=== PATIENT | female | born 1960 | race Caucasian/White ===

== ENCOUNTER → 2017-02-19 | Outpatient (CLI) | payer MEDICAID ==
--- NOTE | 2017-02-19 13:29 | RADIOLOGY REPORT (SQ) ---
EXAM DESCRIPTION: CT CHEST WITHOUT COMPLETED DATE/TIME: 02/19/2017 12:40 pm REASON FOR STUDY: PULMONARY NODULE (R91.1) R91.1 SOLITARY PULMONARY NODULE COMPARISON: 04/30/2015 TECHNIQUE: CT scan performed of the chest without intravenous contrast. Images reviewed with lung, soft tissue and bone windows. Reconstructed coronal and sagittal MPR images reviewed. All images st ored on PACS. All CT scanners at this facility use dose modulation, iterative reconstruction, and/or weight based d osing when appropriate to reduce radiation dose to as low as reasonably achievable (ALARA). [facility]: Dose Right [facility]: CareDose [facility]: Dose Right [facility]: Teradose 4D [facility]: Smart [place] RADIATION DOSE: Up-to-date CT equipment and radiation dose reduction techniques were employed. CTDIv ol: 4.3 mGy. DLP: 177 mGy-cm. mGy. LIMITATIONS: No technical limitations. FINDINGS: LUNGS AND PLEURA: Centrilobular emphysematous changes are present. There are no infiltrat es or effusions. There is no pulmonary mass. HILAR AND MEDIASTINAL STRUCTURES: No identified masses or abnormal nodes. No obvious aneurysm. HEART AND VASCULAR STRUCTURES: No aneurysm. There may be a minimal pericardial effusion, but smaller than on the earlier study. UPPER ABDOMEN: No significant findings. Limited exam. THYROID AND OTHER SOFT TISSUES: Thyroid not well seen. No adenopathy or masses BONES: No significant finding. HARDWARE: None in the chest. OTHER: No other significant findings. IMPRESSION: 1. Pulmonary emphysema. 2. Minimal pericardial effusion, smaller than on earlier study. TECHNICAL DOCUMENTATION: JOB ID: [id number] Quality ID # [id number]: Final reports with documentation of one or more dose reduction techniques (e.g., Au tomated exposure control, adjustment of the mA and/or kV according to patient size, use of iterative reconstruction technique) 2010 [employer]- All Rights Reserved
== END ==
LOC: RAD 12:19
PROVIDERS: ATTEND Internal Medicine Critical Care Medicine
DX: R91.1 Solitary pulmonary nodule (principal)
CPT/HCPCS: 71250

== ENCOUNTER → 2018-08-31 | Outpatient (CLI) | payer MEDICAID ==
--- NOTE | 2018-08-31 21:01 | XCELERA REPORT ---
[address] [address] Transthoracic Echocardiogram Report Name: NACHO PARK Age: 58 yrs Gender: Female : 1960 Patient Status: Outpatient Patient Location: [facility] Study Date: 08/31/2018 09:28 AM Height: 67 in Weight: 154 lb BSA: 1.8 m2 Procedure: A complete two-dimensional transthoracic echocardiogram was performed (2D, M-mode, spectral and color flow Doppler). The study was technically adequate with some images being suboptimal in quality. Reason For Study: CP, DYSPNEA Ordering Physician: ANJALI GODFREY Performed By: Chris Keith Interpretation Summary The left ventricular ejection fraction is normal. There is borderline concentric left ventricular hypertrophy. The left ventricle is grossly normal size. Doppler measurements suggest pseudonormalized left ventricular relaxation, which is associated with grade II/IV or mild to moderate diastolic dysfunction Wall motion cannot be accurately commented on, but no definite regional wall motion abnormalities noted. The right ventricular systolic function is normal. Borderline right ventricular enlargement. The left atrium is mildly dilated. The right atrium is normal in size There is a trace to mild amount of mitral regurgitation There is no mitral valve stenosis. No aortic regurgitation is present. There is no aortic valve stenosis There is a mild amount of tricuspid regurgitation There is moderate pulmonary hypertension by echo Best estimated right ventricular systolic pressure is elevated at 50-60mmHg. The inferior vena cava appeared normal and decreased > 50% with respiration (RAP 5-10 mmHg) Minimal pericardial effusion. MMode/2D Measurements & Calculations RVDd: 2.8 cm LVIDd: 4.8 cm FS: 33.6 % Ao root diam: 3.0 cm IVSd: 0.79 cm LVIDs: 3.2 cm EDV(Teich): Ao root area: 107.3 ml LVPWd: 0.89 cm 7.1 cm2 ESV(Teich): 40.5 mlLA dimension: 3.5 cm EF(Teich): 62.3 % LVLd ap4: 7.2 cm SV(MOD-sp4): EDV(MOD-sp4): 47.0 ml 76.0 ml LVLs ap4: 6.2 cm ESV(MOD-sp4): 29.0 ml EF(MOD-sp4): 61.8 % Doppler Measurements & Calculations MV E max jerzy: MV P1/2t max jerzy: Ao V2 max: LV V1 max P.6 cm/sec 106.2 cm/sec 120.2 cm/sec 2.5 mmHg MV A max jerzy: MV P1/2t: 50.4 msec Ao max P.8 mmHgLV V1 max: 117.5 cm/sec 79.4 cm/sec MVA(P1/2t): 4.4 cm2 MV E/A: 0.92 MV dec slope: 617.6 cm/sec2 MV dec time: 0.18 sec PA V2 max: TR max jerzy: MV P1/2t-pr_phl: 78.8 cm/sec 337.8 cm/sec 50.4 msec PA max P.5 mmHg TR max P.7 mmHg Left Ventricle The left ventricle is grossly normal size. There is borderline concentric left ventricular hypertrophy. The left ventricular ejection fraction is normal. Doppler measurements suggest pseudonormalized left ventricular relaxation, which is associated with grade II/IV or mild to moderate diastolic dysfunction. Wall motion cannot be accurately commented on, but no definite regional wall motion abnormalities noted. Right Ventricle Borderline right ventricular enlargement. There is normal right ventricular wall thickness. The right ventricular systolic function is normal. Atria The right atrium is normal in size. The left atrium is mildly dilated. Interarterial septum not well visualized and not well dopplered. Cannot comment on ASD/PFO presence. Mitral Valve The mitral valve leaflets are sclerotic, but show no functional abnormalities. There is no mitral valve stenosis. There is a trace to mild amount of mitral regurgitation. Aortic Valve The aortic valve is grossly normal. There is no aortic valve stenosis. No aortic regurgitation is present. Tricuspid Valve The tricuspid valve is not well visualized, but is grossly normal. There is no tricuspid stenosis. There is a mild amount of tricuspid regurgitation. There is moderate pulmonary hypertension by echo. Best estimated right ventricular systolic pressure is elevated at 50-60mmHg. Pulmonic Valve The pulmonic valve is not well visualized. Great Vessels The aortic root is not well visualized but is probably normal size. The inferior vena cava appeared normal and decreased > 50% with respiration (RAP 5-10 mmHg). Effusions Minimal pericardial effusion. : ANJALI GODFREY > Ana Gould
== END ==
LOC: RAD 08:18
PROVIDERS: ATTEND Internal Medicine Cardiovascular Disease
DX: R07.9 Chest pain, unspecified (principal); R06.00 Dyspnea, unspecified
CPT/HCPCS: 93306

== ENCOUNTER → 2018-09-01 | Outpatient (CLI) | payer MEDICAID ==
[~2018-09-01] MED LIST: REGADENOSON INJ 0.4 MG/5 ML DISP.SYRIN IV ONE
--- NOTE | 2018-09-04 14:25 | DRAGON STRESS TEST REPORT ---
Intravenous Lexiscan Cardiolite stress test using single photon emmision computerized tomography. Date of procedure: 09/01/2018.Ordering Provider: Dr. Oleksandr Martines. Patient's status: Out Patient Indication: Chest pain, and dyspnea. Coronary risk factors: Age, hypertension, dyslipidemia, and tobacco abuse disorder. Resting: EKG: Sinus Rhythm. Within Normal Limits. Stress EKG: No changes of ischemia. The patient had no chest pain or discomfort, and there were no arrhythmias seen. Reason for termination: Protocol. Conclusions: Normal EKG and hemodynamic response to IV Lexiscan. Nuclear data: At rest the patient was given 10.96 millicuries of technetium 99m sestamibi injected intravenously. As per protocol rest non gated SPECT images were obtained. Subsequently the patient was given intravenous Lexiscan at a dose of 0.4 mg in 5 mL intravenously, followed by flush with normal saline. Subsequently the stress dose of 32.3 millicuries of technetium 99m sestamibi was injected intravenously. As per protocol stress gated images were obtained. Nuclear interpretation: Review of images showed that all segments of the myocardium had normal perfusion at rest, and normal perfusion post stress with IV Lexiscan. All segments of the myocardium had normal motion, contraction, and thickening by gated study. T. I D. ratio was upper normal at 1.20. Visually the T IT ratio looks to be within normal limits. There is no transient ischemic dilatation of the left ventricle. Computer read rest, and stress left ventricular ejection fraction were 68 %, and 61 %, respectively. Conclusion: 1. There is no scintigraphic evidence of Lexiscan induced myocardial ischemia. 2. There is no scintigraphic evidence of myocardial infarction/scar. Recommendations: Aggressive risk factor modification, and treating the underlying co- morbidities. [facility]
== END ==
LOC: RAD 07:55
PROVIDERS: ATTEND Internal Medicine Cardiovascular Disease
DX: R07.9 Chest pain, unspecified (principal); R06.00 Dyspnea, unspecified; I10 Essential (primary) hypertension; E78.5 Hyperlipidemia, unspecified; Z72.0 Tobacco use
CPT/HCPCS: 93017; 78452; A9500; J2785; Q9969

== ENCOUNTER 2019-02-24 12:15 | Emergency (ER) | payer MEDICAID ==
--- NOTE | 2019-02-24 13:10 | RADIOLOGY REPORT (SQ) ---
EXAM DESCRIPTION: CHEST 2 VIEWS COMPLETED DATE/TIME: 02/24/2019 1:02 pm REASON FOR STUDY: cough, SOB COMPARISON: None. EXAM PARAMETERS: NUMBER OF VIEWS: two views TECHNIQUE: Digital Frontal and Lateral radiographic views of the chest acquired. RADIATION DOSE: NA LIMITATIONS: none FINDINGS: LUNGS AND PLEURA: Blunting of both costophrenic angles consistent with pleural thickening or small effusions. Interstitial markings are mildly prominent no focal consolidation. Lung rogers are hyperexpanded consistent with COPD. MEDIASTINUM AND HILAR STRUCTURES: No masses or contour abnormalities. HEART AND VASCULAR STRUCTURES: Heart size is normal there is slight central vascular prominence. BONES: No acute findings. HARDWARE: None in the chest. OTHER: No other significant finding. IMPRESSION: Suspect mild vascular congestion in the setting of COPD. TECHNICAL DOCUMENTATION: JOB ID: [id number] [employer]- All Rights Reserved Reading location - IP/workstation name: [email or web address]
[2019-02-24 13:15] LABS: ABSOLUTE LYMPHOCYTES (AUTO) 2.4 10^3/uL (0.5-4.7); ABSOLUTE MONOCYTES (AUTO) 0.3 10^3/uL (0.1-1.4); ABSOLUTE NEUT (AUTO) 4.3 10^3/uL (1.7-8.2); BASOPHILS % (AUTO) 0.1 % (0-2); EOSINOPHILS % (AUTO) 0.6 % (0-6); HEMATOCRIT 43.7 % (36.0-47.0); HEMOGLOBIN 14.9 g/dL (12.0-15.5); LYMPHOCYTES % (AUTO) 34.4 % (13-45); MEAN CORPUSCULAR HEMOGLOBIN 33.8 pg (27.0-33.4); MEAN CORPUSCULAR HGB CONC 34.2 g/dL (32.0-36.0); MEAN CORPUSCULAR VOLUME 99 fl (80-97); MONOCYTES % (AUTO) 3.6 % (3-13); PLATELET COUNT 304 10^3/uL (150-450); RED BLOOD COUNT 4.42 10^6/uL (3.72-5.28); RED CELL DISTRIBUTION WIDTH 15.1 % (11.5-14.0); SEGMENTED NEUTROPHILS % (AUTO) 61.3 % (42-78); TOTAL CELLS COUNTED % (AUTO) 100 %
[2019-02-24 13:35] LABS: ALBUMIN 4.4 g/dL (3.5-5.0); ALKALINE PHOSPHATASE 85 U/L (38-126); ANION GAP 11 (5-19); ASPARTATE AMINO TRANSFERASE 19 U/L (14-36); BILIRUBIN,DIRECT 0.3 mg/dL (0.0-0.4); BILIRUBIN,TOTAL 0.7 mg/dL (0.2-1.3); BLOOD UREA NITROGEN 12 mg/dL (7-20); CALCIUM 9.5 mg/dL (8.4-10.2); CARBON DIOXIDE 25 mmol/L (22-30); CHLORIDE 105 mmol/L (98-107); CREATINE KINASE 82 U/L (30-135); GLUCOSE 143 mg/dL (75-110); POTASSIUM 3.3 mmol/L (3.6-5.0); TOTAL PROTEIN 7.1 g/dL (6.3-8.2)
[2019-02-24 13:46] LABS: NT PRO BNP 621 pg/mL (5-900); TROPONIN I < 0.012 ng/mL
[2019-02-24] MEDS ORDERED: DIPHENHYDRAMINE HCL 50 MG/ML VIAL IV ONE (13:49)
--- NOTE | 2019-02-24 15:23 | ER Document Report ---
ED General - General Chief Complaint: Allergic Reaction Stated Complaint: POSSIBLE ALLERGIC REACTION Time Seen by Provider: 02/24/19 12:25 Primary Care Provider: JAYDE GANDHI FNP-C [Primary Care Provider] - Follow up as needed TRAVEL OUTSIDE OF THE [place] IN LAST 30 DAYS: No - HPI Notes: 59-year-old female with history of COPD to the emergency department via EMS with complaints of possible allergic reaction that occurred just prior to arrival. She states that she has been experiencing cough, shortness of breath for the past 2 weeks. She states that she does see pulmonology and she is supposed to get pulmonary function tests but did not have them. She states that for the past week she has been on her nebulizer machine several times a day upwards to 10 treatments and is also been using her rescue inhaler. She states that that has not been helping her at home. She states that she does not use home oxygen. She states that when she was last at her supervisor home economics office her O2 level was 94% on room air. She states that despite being told by her supervisor home economics that she should stop quitting she still continues to smoke approximately 10 cigarettes a day. She states that she has been coughing up clear fluid but denies any fevers, chills. She states that this morning she went to go get a pain pill because all of her coughing has been hurting her chest and she thinks she accidentally may have taken a sulfa antibiotic. She states that she is allergic to sulfa antibiotics. She states that soon after taking her medicine she broke out in a hot red rash to her upper extremity chest back trunk and legs. She states that she started to feel more short of breath so she gave herself 2 nebulizer treatments and took a 25 mg tablet of Benadryl as well as a small amount of liquid Benadryl for her dog. She states that when she did not feel better she called medics. Medics gave patient a injection of epinephrine as well as 125 of Solu-Medrol and 50 mg of Zantac. When medics picked patient up she had a O2 sat of 84% on room air. She states that since getting the medicine with medics she is starting to feel better. She states that she does not feel like her tongue swelling or her throat was closing. She does not have an EpiPen herself at home. She denies any other complaints. - Related Data Allergies/Adverse Reactions: No Known Allergies Allergy (Verified 04/13/16 12:36) Past Medical History - General Information source: Patient, Emergency Med Personnel - Social History Smoking Status: Current Every Day Smoker Frequency of alcohol use: None Drug Abuse: None Family History: Reviewed & Not Pertinent Patient has suicidal ideation: No Patient has homicidal ideation: No - Past Medical History Cardiac Medical History: Denies: Hx Heart Attack, Hx Hypertension Pulmonary Medical History: Reports: Hx Asthma, Hx COPD Neurological Medical History: Denies: Hx Cerebrovascular Accident, Hx Seizures Renal/ Medical History: Denies: Hx Peritoneal Dialysis GI Medical History: Reports: Hx Gastroesophageal Reflux Disease, Hx Hiatal He rnia, Hx Ulcer. Denies: Hx Hepatitis Psychiatric Medical History: Reports: Hx Bipolar Disorder Infectious Medical History: Denies: Hx Hepatitis Past Surgical History: Denies: Hx Hysterectomy, Hx Mastectomy, Hx Open Heart Dharmesh katie, Hx Pacemaker - Immunizations Hx Diphtheria, Pertussis, Tetanus Vaccination: No Review of Systems - Review of Systems Constitutional: denies: Chills, Fever EENT: No symptoms reported Cardiovascular: See HPI, Chest pain - Tussive chest pain and chest pain that increases with big deep breath. denies: Syncope, Dizziness, Lightheaded Respiratory: Cough, Short of breath Gastrointestinal: denies: Abdominal pain, Diarrhea, Nausea, Vomiting Genitourinary: No symptoms reported Musculoskeletal: No symptoms reported Skin: See HPI, Rash Hematologic/Lymphatic: No symptoms reported Neurological/Psychological: No symptoms reported -: Yes All other systems reviewed and negative Physical Exam - Vital signs Vitals: Resp Pulse Ox 16 98 02/24/19 12:38 02/24/19 12:38 Interpretation: Normal - General General appearance: Alert, Other - Appears chronically ill. Noted fragrance of cigarettes on patient. In distress: None - HEENT Head: Normocephalic, Atraumatic Eyes: Normal Pupils: PERRL Ears: Normal External canal: Normal Tympanic membrane: Normal Sinus: Normal Nasal: Normal Mouth/Lips: Normal. No: Angioedema Mucous membranes: Normal Pharynx: Normal. No: Peritonsillar abscess, Post nasal drainage, Retropharyngeal abscess, Tonsillar hypertrophy, Uvular edema, Potential airway comprom. - No drooling, no Rey's angina. Airway is grossly patent Neck: Normal - Respiratory Respiratory status: Tachypnea - Patient is slightly tachypneic. She has a hacking dry cough she has a raspy voice consistent with smoker. Chest status: Nontender Breath sounds: Normal. No: Rales, Rhonchi, Stridor, Wheezing Chest palpation: Normal - Cardiovascular Rhythm: Regular Heart sounds: Normal auscultation Murmur: No Notes: No pitting edema to bilateral lower extremities - Abdominal Inspection: Normal Distension: No distension Bowel sounds: Normal Tenderness: Nontender Organomegaly: No organomegaly - Back Back: Normal, Nontender - Neurological Neuro grossly intact: Yes Cognition: Normal Orientation: AAOx4 Thierry Coma Scale Eye Opening: Spontaneous [place] Coma Scale Verbal: Oriented Thierry Coma Scale Motor: Obeys Commands Thierry Coma Scale Total: 15 Speech: Normal Motor strength normal: LUE, RUE, LLE, RLE Sensory: Normal - Psychological Associated symptoms: Normal affect, Normal mood - Skin Skin Temperature: Warm Skin Moisture: Dry Skin Color: Normal Course - Re-evaluation Re-evalutation: 02/24/19 15:24 Rounded on patient and she is doing better. Since she was given epinephrine we will continue to monitor the patient. Will await lab work as well as imaging studies. 02/24/19 17:23 Rounded on patient and she continues to do well. She no longer requires oxygen as she did when she first came in. She has been able to ambulate about the ER and her oxygen level has been maintained. Her allergic reaction has gotten better. Plan to send her home on a Medrol Dosepak. We will also write for epinephrine. Have urged her to throw away the sulfa drug that she thinks she accidentally took this morning. Have also educated her heavily on smoking cessation. Have asked her to follow-up with her supervisor home economics and primary care first thing next week. Urged her to return she has any worsening symptoms such as progressively worsening shortness of breath, worsening allergic reaction, chest pain or any other complaints. Patient agrees with the plan. - Vital Signs Vital signs: Temp Pulse Resp BP Pulse Ox 22 H 144/81 H 96 02/24/19 16:01 02/24/19 16:00 02/24/19 16:01 Selected Entries 02/24/19 17:17 Heart Rate ( 74 Monitors) Respiratory 16 Rate Blood Pressure 164/92 H Blood Pressure 116 Mean O2 Sat by Pulse 96 Oximetry - Laboratory Result Diagrams: 02/24/19 12:58 02/24/19 12:28 Laboratory results interpreted by me: 02/24/19 02/24/19 12:28 12:58 MCV 99 H MCH 33.8 H RDW 15.1 H Potassium 3.3 L Glucose 143 H - Diagnostic Test Radiology reviewed: Image reviewed, Reports reviewed - EKG Interpretation by Me EKG shows normal: Sinus rhythm Rate: Normal Rhythm: NSR When compared to previous EKG there are: Previous EKG unavailable Additional EKG results interpreted by me: 02/24/19 15:26 No STEMI. Nonspecific T wave changes in aVL and V2. No prior for comparison. Discharge - Discharge Clinical Impression: Allergic reaction Qualifiers: Encounter type: initial encounter Qualified Code(s): T78.40XA - Allergy, unspecified, initial encounter COPD (chronic obstructive pulmonary disease) Qualifiers: COPD type: unspecified COPD Qualified Code(s): J44.9 - Chronic obstructive pulmonary disease, unspecified Condition: Stable Disposition: HOME, SELF-CARE Instructions: Acute Allergic Reaction ([facility]), Chronic Obstructive Lung Disease ([facility]) Additional Instructions: FOLLOW UP WITH YOUR PRIMARY CARE AND HEEL TURNER AT THE BEGINNING OF NEXT WEEK WITHOUT FAIL. COMPLETE STEROIDS. RETURN IF ANY WORSENING SYMPTOMS. Prescriptions: Epinephrine [Epipen 2-Geovany] 0.3 mg IM ASDIR PRN #1 packet PRN Reason: Methylprednisolone [Medrol Dosepack (4 mg/Tab) 21 Tab/Dosepak] 4 mg PO ASDIR PRN #21 tab.ds.pk PRN Reason: Referrals: JAYDE GANDHI FNP-C [Primary Care Provider] - Follow up in 3-5 days
[2019-02-24 17:23] VITALS: BP 164/92
--- NOTE | 2019-02-25 19:06 | EKG REPORT ---
SEVERITY:- ABNORMAL ECG - SINUS RHYTHM BIATRIAL ABNORMALITIES : Confirmed by: Lilia Altman MD 25-Feb-2019 19:05:13
== END 2019-02-24 18:12 | disposition home or self-care (01) ==
LOC: ER 12:15
DX: T78.40XA Allergy, unspecified, initial encounter (principal); J44.9 Chronic obstructive pulmonary disease, unspecified; R05 Cough; R06.82 Tachypnea, not elsewhere classified; Z79.899 Other long term (current) drug therapy; F17.200 Nicotine dependence, unspecified, uncomplicated
CPT/HCPCS: 93005; 99284; 96374; 36415; 82553; 82550; 85025; 80053; 84484; 83880; 71046; 93010; J1200

== ENCOUNTER → 2019-04-06 | Outpatient (CLI) | payer MEDICAID ==
--- NOTE | 2019-04-06 16:28 | RADIOLOGY REPORT (SQ) ---
EXAM DESCRIPTION: CT CHEST WITHOUT COMPLETED DATE/TIME: 04/06/2019 1:19 pm REASON FOR STUDY: Z80.1 FAMILY HISTORY OF MALIG NEOPLASM OF TRACHEA, BRONC AND LUNG Z80.1 FAMILY HI STORY OF MALIG NEOPLASM OF TRACHEA, BRONC AND COMPARISON: 02/19/2017 TECHNIQUE: CT scan performed of the chest without intravenous contrast. Images reviewed with lung, soft tissue and bone windows. Reconstructed coronal and sagittal MPR images reviewed. All images st ored on PACS. All CT scanners at this facility use dose modulation, iterative reconstruction, and/or weight based d osing when appropriate to reduce radiation dose to as low as reasonably achievable (ALARA). [facility]: Dose Right [facility]: CareDose [facility]: Dose Right [facility]: Teradose 4D [facility]: [employer] RADIATION DOSE: CT Rad equipment meets quality standard of care and radiation dose reduction techniq ues were employed. CTDIvol: 5.6 mGy. DLP: 228 mGy-cm. mGy. LIMITATIONS: No technical limitations. FINDINGS: LUNGS AND PLEURA: Centrilobular emphysema in the upper lobes. No infiltrate or effusion o r mass. HILAR AND MEDIASTINAL STRUCTURES: Small nonspecific mediastinal nodes. No mediastinal or hilar mass. HEART AND VASCULAR STRUCTURES: No aneurysm. Stable small pericardial effusion. UPPER ABDOMEN: No significant findings. Limited exam. THYROID AND OTHER SOFT TISSUES: No masses. No adenopathy. BONES: No significant finding. HARDWARE: None in the chest. OTHER: No other significant findings. IMPRESSION: Centrilobular emphysema. Stable small pericardial effusion. No acute findings in the t horax. TECHNICAL DOCUMENTATION: JOB ID: [id number] Quality ID # [id number]: Final reports with documentation of one or more dose reduction techniques (e.g., Au tomated exposure control, adjustment of the mA and/or kV according to patient size, use of iterative reconstruction technique) 2010 [employer]- All Rights Reserved Reading location - IP/workstation name: [email or web address]
== END ==
LOC: RAD 12:53
PROVIDERS: ATTEND Internal Medicine Critical Care Medicine
DX: J43.2 Centrilobular emphysema (principal); R91.1 Solitary pulmonary nodule; R91.8 Other nonspecific abnormal finding of lung field; Z80.1 Family history of malignant neoplasm of trachea, bronchus and lung
CPT/HCPCS: 71250

== ENCOUNTER 2019-10-15 17:19 | Inpatient (IN) | payer MEDICAID ==
[2019-10-15 17:48] LABS: ABSOLUTE BASOPHILS # (AUTO) 0.1 10^3/uL (0.0-0.2); ABSOLUTE EOSINOPHILS # (AUTO) 0.1 10^3/uL (0.0-0.6); ABSOLUTE MONOCYTES (AUTO) 0.9 10^3/uL (0.1-1.4); ABSOLUTE NEUT (AUTO) 15.3 10^3/uL (1.7-8.2); BASOPHILS % (AUTO) 0.3 % (0-2); EOSINOPHILS % (AUTO) 0.4 % (0-6); HEMOGLOBIN 12.4 g/dL (12.0-15.5); LYMPHOCYTES % (AUTO) 10.7 % (13-45); MEAN CORPUSCULAR HEMOGLOBIN 34.5 pg (27.0-33.4); MEAN CORPUSCULAR HGB CONC 35.4 g/dL (32.0-36.0); MEAN CORPUSCULAR VOLUME 98 fl (80-97); MONOCYTES % (AUTO) 5.1 % (3-13); PLATELET COUNT 323 10^3/uL (150-450); RED BLOOD COUNT 3.58 10^6/uL (3.72-5.28); RED CELL DISTRIBUTION WIDTH 14.6 % (11.5-14.0); SEGMENTED NEUTROPHILS % (AUTO) 83.5 % (42-78); TOTAL CELLS COUNTED % (AUTO) 100 %; WHITE BLOOD COUNT 18.3 10^3/uL (4.0-10.5)
[2019-10-15 17:54] LABS: ALBUMIN 3.8 g/dL (3.5-5.0); ALKALINE PHOSPHATASE 107 U/L (38-126); ANION GAP 19 (5-19); ASPARTATE AMINO TRANSFERASE 50 U/L (14-36); BILIRUBIN,DIRECT 0.4 mg/dL (0.0-0.4); BILIRUBIN,TOTAL 0.8 mg/dL (0.2-1.3); BLOOD UREA NITROGEN 113 mg/dL (7-20); CARBON DIOXIDE 20 mmol/L (22-30); CHLORIDE 94 mmol/L (98-107); CREATINE KINASE 429 U/L (30-135); GLUCOSE 117 mg/dL (75-110); POTASSIUM 3.4 mmol/L (3.6-5.0); TOTAL PROTEIN 7.8 g/dL (6.3-8.2)
[2019-10-15 18:05] LABS: CREATINE KINASE MB 2.76 ng/mL (<4.55); TROPONIN I 0.025 ng/mL
--- NOTE | 2019-10-15 18:08 | RADIOLOGY REPORT (SQ) ---
EXAM DESCRIPTION: CHEST SINGLE VIEW IMAGES COMPLETED DATE/TIME: 10/15/2019 5:58 pm REASON FOR STUDY: sob COMPARISON: 02/24/2019 EXAM PARAMETERS: NUMBER OF VIEWS: One view. TECHNIQUE: Single frontal radiographic view of the chest acquired. RADIATION DOSE: NA LIMITATIONS: None. FINDINGS: LUNGS AND PLEURA: Dense opacity and pleural effusion on the right. Parenchymal opacity on the left. MEDIASTINUM AND HILAR STRUCTURES: No masses. Contour normal. HEART AND VASCULAR STRUCTURES: Heart normal in size. Normal vasculature. BONES: No acute findings. HARDWARE: None in the chest. OTHER: No other significant finding. IMPRESSION: Bilateral pneumonia and right pleural effusion. TECHNICAL DOCUMENTATION: JOB ID: [id number] 2010 [employer]- All Rights Reserved Reading location - IP/workstation name: [email or web address]
[2019-10-15] MEDS ORDERED: NORMAL SALINE 1000 ML 1,000 ML IV PRN (19:07)
[2019-10-15] MEDS ORDERED: CEFTRIAXONE 1 GM/D5W RTU 1 GM/50 ML RTUPB IV ONE (19:47)
[2019-10-15] MEDS ORDERED: LEVOFLOXACIN 750 MG/D5W RTU 150 ML IV ONE (19:49)
[2019-10-15] MEDS ORDERED: AZITHROMYCIN INJ 500 MG VIAL IV ONE (19:57)
--- NOTE | 2019-10-15 20:05 | ER Document Report ---
ED General - General Chief Complaint: General Weakness Stated Complaint: GENERAL WEAKNESS Time Seen by Provider: 10/15/19 19:47 Primary Care Provider: WALI CHAPA MD [Primary Care Provider] - Follow up as needed Mode of Arrival: Medic Information source: Patient, Emergency Med Personnel TRAVEL OUTSIDE OF THE [place] IN LAST 30 DAYS: No - HPI Onset: Other - 2-3 weeks ago Onset/Duration: Persistent Quality of pain: Achy Severity: Moderate Pain Level: 2 Associated symptoms: Productive cough, Shortness of breath Exacerbated by: Movement, Coughing, Deep breathing Relieved by: Denies Similar symptoms previously: Yes - pneumonia many years ago Recently seen / treated by doctor: No - Related Data Allergies/Adverse Reactions: No Known Allergies Allergy (Verified 04/13/16 12:36) Past Medical History - General Information source: Patient - Social History Smoking Status: Current Every Day Smoker Cigarette use (# per day): Yes Chew tobacco use (# tins/day): No Smoking Education Provided: Yes Drug Abuse: None Lives with: Family Family History: Reviewed & Not Pertinent Patient has suicidal ideation: No Patient has homicidal ideation: No - Past Medical History Cardiac Medical History: Denies: Hx Heart Attack, Hx Hypertension Pulmonary Medical History: Reports: Hx Asthma, Hx COPD Neurological Medical History: Denies: Hx Cerebrovascular Accident, Hx Seizures Renal/ Medical History: Denies: Hx Peritoneal Dialysis GI Medical History: Reports: Hx Gastroesophageal Reflux Disease, Hx Hiatal Hernia, Hx Ulcer. Denies: Hx Hepatitis Psychiatric Medical History: Reports: Hx Bipolar Disorder Infectious Medical History: Denies: Hx Hepatitis Past Surgical History: Denies: Hx Hysterectomy, Hx Mastectomy, Hx Open Heart Surgery, Hx Pacemaker - Immunizations Hx Diphtheria, Pertussis, Tetanus Vaccination: No Review of Systems - Review of Systems Constitutional: No symptoms reported, See HPI, Chills, Malaise, Weakness, Recent illness EENT: No symptoms reported Cardiovascular: No symptoms reported Respiratory: See HPI, Cough, Short of breath, Sputum Gastrointestinal: No symptoms reported Genitourinary: No symptoms reported Female Genitourinary: No symptoms reported Musculoskeletal: No symptoms reported Skin: No symptoms reported Hematologic/Lymphatic: No symptoms reported Neurological/Psychological: No symptoms reported Physical Exam - Vital signs Vitals: Resp BP Pulse Ox 18 71/50 L 98 10/15/19 17:18 10/15/19 17:18 10/15/19 17:18 Interpretation: Hypotensive, Hypoxic, Tachypneic - HEENT Head: Normocephalic Eyes: Normal Conjunctiva: Normal Cornea: Normal Extraocular movements intact: Yes Eyelashes: Normal Pupils: PERRL Sinus: Normal Nasal: Normal Mouth/Lips: Normal Mucous membranes: Dry Pharynx: Normal Neck: Normal - Respiratory Respiratory status: No respiratory distress Chest status: Tender - left UQ flank pain Breath sounds: Decreased air movement, Productive cough, Rales - Cardiovascular Rhythm: Tachycardia Heart sounds: Normal auscultation Murmur: No Friction rub: No Elsie's crunch: No - Abdominal Inspection: Normal Distension: No distension Bowel sounds: Normal Tenderness: Nontender Organomegaly: No organomegaly - Back Back: Normal - Extremities General upper extremity: Normal inspection General lower extremity: Normal inspection - Neurological Neuro grossly intact: Yes Cognition: Normal Orientation: AAOx4 Manley Coma Scale Eye Opening: Spontaneous Thierry Coma Scale Verbal: Oriented Thierry Coma Scale Motor: Obeys Commands Manley Coma Scale Total: 15 Speech: Normal Cranial nerves: Normal Cerebellar coordination: Normal Motor strength normal: LUE, RUE, LLE, RLE - Psychological Associated symptoms: Normal affect - Skin Skin Temperature: Warm Skin Moisture: Dry Course - Vital Signs Vital signs: Temp Pulse Resp BP Pulse Ox 98.5 F 25 H 102/43 L 97 10/15/19 22:08 10/15/19 22:30 10/15/19 22:30 10/15/19 22:30 - Laboratory Result Diagrams: 10/15/19 17:22 10/15/19 17:22 Laboratory results interpreted by me: 10/15/19 10/15/19 10/15/19 17:22 17:22 17:22 WBC 18.3 H RBC 3.58 L Hct 35.0 L MCV 98 H MCH 34.5 H RDW 14.6 H Lymph % (Auto) 10.7 L Absolute Neuts (auto) 15.3 H Seg Neutrophils % 83.5 H D-Dimer Sodium 133.1 L Potassium 3.4 L Chloride 94 L Carbon Dioxide 20 L BUN 113 H Creatinine 9.05 H Est GFR ( Amer) 5 L Est GFR (MDRD) Non-Af 4 L Glucose 117 H Lactic Acid Ferritin AST 50 H Creatine Kinase 429 H NT-Pro-B Natriuret Pep 794 H Urine Protein Urine Blood Ur Leukocyte Esterase 10/15/19 10/15/19 10/15/19 17:22 17:22 20:21 WBC RBC Hct MCV MCH RDW Lymph % (Auto) Absolute Neuts (auto) Seg Neutrophils % D-Dimer 7.70 H Sodium Potassium Chloride Carbon Dioxide BUN Creatinine Est GFR ( Amer) Est GFR (MDRD) Non-Af Glucose Lactic Acid 0.6 L Ferritin 710.00 H AST Creatine Kinase NT-Pro-B Natriuret Pep Urine Protein Urine Blood Ur Leukocyte Esterase 10/15/19 20:48 WBC RBC Hct MCV MCH RDW Lymph % (Auto) Absolute Neuts (auto) Seg Neutrophils % D-Dimer Sodium Potassium Chloride Carbon Dioxide BUN Creatinine Est GFR ( Amer) Est GFR (MDRD) Non-Af Glucose Lactic Acid Ferritin AST Creatine Kinase NT-Pro-B Natriuret Pep Urine Protein 30 H Urine Blood SMALL H Ur Leukocyte Esterase TRACE H - Diagnostic Test Radiology reviewed: Reports reviewed - EKG Interpretation by Me EKG shows normal: Sinus rhythm Rate: Normal Rhythm: NSR Critical Care Note - Critical Care Note Total time excluding time spent on procedures (mins): 90 Comments: spoke with Kerwin @ 1999 about kathryn pneumonia; I discussed this case with Discharge - Discharge Clinical Impression: Pneumonia Qualifiers: Pneumonia type: due to unspecified organism Laterality: bilateral Lung location: lower lobe of lung Qualified Code(s): J18.9 - Pneumonia, unspecified organism Sepsis Qualifiers: Sepsis type: sepsis due to unspecified organism Sepsis acute organ dysfunction status: unspecified Qualified Code(s): A41.9 - Sepsis, unspecified organism Condition: Serious Disposition: ADMITTED INPATIENT Unit Admitted: ICU Additional Instructions: transfer this pt to ICU 5th floor ; I spoke with him at 2240 and he advises for floor; earlier had spoken with Kerwin as well. Referrals: WALI CHAPA MD [Primary Care Provider] - Follow up as needed
[2019-10-15] MEDS: RINGERS SOLUTION,LACTATED 1,000 ML IV PRN ×2 (20:27→21:32)
[2019-10-15 21:03] LABS: A TYPE INFLUENZA AG NEGATIVE (NEGATIVE); B INFLUENZA AG NEGATIVE (NEGATIVE)
[2019-10-15 21:10] LABS: APPEARANCE,URINE CLOUDY; BILIRUBIN,URINE NEGATIVE (NEGATIVE); COLOR,URINE YELLOW; GLUCOSE, URINE NEGATIVE (NEGATIVE); KETONES,URINE NEGATIVE (NEGATIVE); LEUKOCYTE ESTERASE,URINE TRACE (NEGATIVE); NITRITE,URINE NEGATIVE (NEGATIVE); PROTEIN,URINE 30 mg/dL (NEGATIVE); URINE SPECIFIC GRAVITY 1.017; UROBILINOGEN,URINE NEGATIVE mg/dL (<2.0)
--- NOTE | 2019-10-15 22:28 | EKG REPORT ---
SEVERITY:- ABNORMAL ECG - SINUS RHYTHM LEFT ATRIAL ABNORMALITY : Confirmed by: Lilia Altman MD 15-Oct-2019 22:28:34
[2019-10-15] MEDS ORDERED: NORMAL SALINE 1000 ML 500 ML IV PRN (22:53)
[2019-10-15] MEDS ORDERED: ACETAMINOPHEN 650 MG SUPP.RECT PR PRN (23:01)
[2019-10-15] MEDS ORDERED: ACETAMINOPHEN 325 MG TABLET PO PRN (23:01)
[2019-10-15] MEDS ORDERED: ALBUTEROL SULFATE HFA (90 MCG/PUFF) 8 GM MDI IH PRN (23:08)
[2019-10-15] MEDS ORDERED: ENOXAPARIN SODIUM INJ 80 MG/0.8 ML DISP.SYRIN SUBCUT ONE (23:30)
[2019-10-15] MEDS ORDERED: MELATONIN 5 MG TABLET PO ONE (23:30)
--- NOTE | 2019-10-15 23:50 | PDOC H&P ---
History of Present Illness Admission Date/PCP: 10/15/19 23:06 WALI CHAPA MD Patient complains of: Shortness of breath History of Present Illness: NACHO PARK is a 59-year-old female with a history of COPD who still smokes 1/2 pack cigarettes daily. She states for the last week or more she has been feeling poorly. She is already on oxygen at home but states that she desaturates and gets very short of breath with minimal exertion. She denies fever or chills. She states that she has a cough but it is not terribly productive. She clearly is having increased work of breathing. Her chest x-ray shows bilateral pneumonia with the right lower lobe most significantly impacted. She has an elevated white blood cell count as well as lymphopenia, increased ferritin level, increased d-dimer and a severe acute kidney injury. She states that her intake has been extremely limited over the past 2 weeks. Her blood pressure was low but she responded to fluids. I discussed the case with the field logistics coordinator and we will admit the patient to the fifth floor for high index of suspicion of Covid-19 virus with underlying bilateral pneumonia, COPD and acute kidney injury. Past Medical History Cardiac Medical History: Denies: Myocardial Infarction, Hypertension Pulmonary Medical History: Reports: Asthma, Chronic Obstructive Pulmonary Disease (COPD) Neurological Medical History: Reports: Ischemic CVA Denies: Seizures Endocrine Medical History: Reports: Diabetes Mellitus Type 2 Renal/ Medical History: Reports: Chronic Kidney Disease GI Medical History: Reports: Gastroesophageal Reflux Disease, Hiatal Hernia Denies: Hepatitis Psychiatric Medical History: Reports: Bipolar Disorder Hematology: Denies: Anemia, Sickle Cell Disease Past Surgical History Past Surgical History: Denies: Amputation, Hysterectomy, Mastectomy, Pacemaker Social History Information Source: Patient Lives with: Family Smoking Status: Current Every Day Smoker Frequency of Alcohol Use: None Hx Recreational Drug Use: No Hx Prescription Drug Abuse: No - Advance Directive Resuscitation Status: Full Code Family History Family History: Reviewed & Not Pertinent Parental Family History Reviewed: Yes Children Family History Reviewed: Yes Sibling(s) Family History Reviewed.: Yes Medication/Allergy Home Medications: Fluticasone/Salmeterol [Advair 500-50 Diskus 28 Dose] 2 puff IH BID 06/05/13 Albuterol Sulfate [Proventil Sr 4 mg Tablet] 4 mg PO Q12H 03/19/16 Chlorpromazine HCl [Thorazine 25 Mg Tablet] 25 mg PO TID 03/19/16 Omeprazole 40 mg PO DAILY 03/19/16 Quetiapine Fumarate [Seroquel] 150 mg PO BID 03/19/16 Triazolam [Halcion] 0.25 mg PO DAILY 03/19/16 Epinephrine [Epipen 2-Geovany] 0.3 mg IM ASDIR PRN #1 packet 02/24/19 Methylprednisolone [Medrol Dosepack (4 mg/Tab) 21 Tab/Dosepak] 4 mg PO ASDIR PRN #21 tab.ds.pk 02/24/19 Allergies/Adverse Reactions: No Known Allergies Allergy (Verified 04/13/16 12:36) Review of Systems All systems: reviewed and no additional remarkable complaints except as stated Constitutional: PRESENT: weakness Cardiovascular: PRESENT: dyspnea on exertion Respiratory: PRESENT: cough, dyspnea Gastrointestinal: PRESENT: diarrhea Physical Exam Vital Signs: Temp Pulse Resp BP Pulse Ox 98.5 F 27 H 106/48 L 96 10/15/19 22:08 10/15/19 23:30 10/15/19 23:30 10/15/19 23:30 Intake & Output 10/14/19 10/15/19 10/16/19 06:59 06:59 06:59 Intake Total 3016 Balance 3016 Weight 70.307 kg General appearance: PRESENT: other - Well-developed 59-year-old female who looks older than her stated age. She exhibits clear increased work of breathing and is in moderate to severe distress. Head exam: PRESENT: atraumatic, normocephalic Eye exam: PRESENT: conjunctiva pink. ABSENT: scleral icterus Ear exam: PRESENT: normal external ear exam. ABSENT: bleeding, drainage Mouth exam: PRESENT: dry mucosa, tongue midline Respiratory exam: PRESENT: decreased breath sounds - Right base, prolonged e xpiratory phas, rales, symmetrical, tachypnea, wheezes - Bilateral expiratory Cardiovascular exam: PRESENT: RRR, +S1, +S2 GI/Abdominal exam: PRESENT: normal bowel sounds, soft. ABSENT: distended, guarding, tenderness Rectal exam: PRESENT: deferred Gentrourinary exam: PRESENT: indwelling catheter Extremities exam: ABSENT: pedal edema Musculoskeletal exam: PRESENT: normal inspection Neurological exam: PRESENT: alert, awake, oriented to person, oriented to place, oriented to situation, CN II-XII grossly intact Psychiatric exam: PRESENT: anxious. ABSENT: agitated Focused psych exam: ABSENT: delusional, paranoid, restlessness Skin exam: PRESENT: dry, normal color, warm. ABSENT: rash Results Laboratory Results: 10/15/19 17:22 10/15/19 17:22 10/15/19 10/15/19 10/15/19 17:22 17:22 17:22 WBC 18.3 H RBC 3.58 L Hgb 12.4 Hct 35.0 L MCV 98 H MCH 34.5 H MCHC 35.4 RDW 14.6 H Plt Count 323 Seg Neutrophils % 83.5 H Sodium 133.1 L Potassium 3.4 L Chloride 94 L Carbon Dioxide 20 L Anion Gap 19 BUN 113 H Creatinine 9.05 H Est GFR ( Amer) 5 L Glucose 117 H Lactic Acid Calcium 9.0 Ferritin 710.00 H Total Bilirubin 0.8 AST 50 H Alkaline Phosphatase 107 Total Protein 7.8 Albumin 3.8 Urine Color Urine Appearance Urine pH Ur Specific Whately Urine Protein Urine Glucose (UA) Urine Ketones Urine Blood Urine Nitrite Ur Leukocyte Esterase Urine WBC (Auto) Urine RBC (Auto) 10/15/19 10/15/19 20:21 20:48 WBC RBC Hgb Hct MCV MCH MCHC RDW Plt Count Seg Neutrophils % Sodium Potassium Chloride Carbon Dioxide Anion Gap BUN Creatinine Est GFR ( Amer) Glucose Lactic Acid 0.6 L Calcium Ferritin Total Bilirubin AST Alkaline Phosphatase Total Protein Albumin Urine Color YELLOW Urine Appearance CLOUDY Urine pH 5.0 Ur Specific Whately 1.017 Urine Protein 30 H Urine Glucose (UA) NEGATIVE Urine Ketones NEGATIVE Urine Blood SMALL H Urine Nitrite NEGATIVE Ur Leukocyte Esterase TRACE H Urine WBC (Auto) 4 Urine RBC (Auto) 1 10/15/19 10/15/19 17:22 17:22 Creatine Kinase 429 H CK-MB (CK-2) 2.76 Troponin I 0.025 NT-Pro-B Natriuret Pep 794 H Impressions: Chest X-Ray 10/15/19 17:26 IMPRESSION: Bilateral pneumonia and right pleural effusion. Assessment and Plan - Diagnosis (1) Pneumonia Qualifiers: Pneumonia type: due to unspecified organism Laterality: bilateral Lung location: lower lobe of lung Qualified Code(s): J18.9 - Pneumonia, unspecified organism Is this a current diagnosis for this admission?: Yes Plan: 10/15/2019 Patient with history of COPD who still smokes. She has bilateral pneumonia with respiratory difficulty. She exhibits increased work of breathing with hypoxia requiring more than her baseline oxygen. She will be on azithromycin and ceftriaxone. Based on her presentation, risk factors and work-up including imaging and laboratory studies there is a high index of suspicion for Covid-19 virus. (2) Sepsis Qualifiers: Sepsis type: sepsis due to unspecified organism Sepsis acute organ dysfunction status: with acute organ dysfunction Severe sepsis acute organ dysfunction type: acute renal failure Acute renal failure type: with acute tubular necrosis Severe sepsis shock status: without septic shock Qualified Code(s): A41.9 - Sepsis, unspecified organism; R65.20 - Severe sepsis without septic shock; N17.0 - Acute kidney failure with tubular necrosis Is this a current diagnosis for this admission?: Yes Plan: 10/15/2019 The patient had a low blood pressure that did respond to fluids. Her serum creatinine is markedly elevated. She is exhibiting hypoxemia over and above her baseline at home. She will be receiving fluids and antibiotics. Will monitor with serial laboratory studies. (3) Acute kidney injury Is this a current diagnosis for this admission?: Yes Plan: 10/15/2019 Likely due to a combination of sepsis and the patient's significant reduction in intake over the last 7 to 10 days. She is also having diarrhea. This will also generate fluid loss. Aggressive IV fluid with serial labs to monitor renal function. (4) Acute respiratory failure with hypoxia Is this a current diagnosis for this admission?: Yes Plan: 10/15/2019 Supplemental oxygen. Taper back to her baseline oxygen as tolerated. Treat the underlying pneumonia and COPD. (5) COPD exacerbation Is this a current diagnosis for this admission?: Yes Plan: 10/15/2019 Secondary to pneumonia. Possibly bacterial but also possibly viral. Antibiotics have been ordered. Other medications and use due to the high index of suspicion for Covid-19 virus. She will be admitted to the fifth floor for isolation. We will utilize inhalers as we are avoiding nebulizer treatments at this time. (6) Hypokalemia Is this a current diagnosis for this admission?: Yes Plan: 10/15/2019 Potassium supplementation. Serial labs to monitor potassium (7) Hyponatremia Is this a current diagnosis for this admission?: Yes Plan: 10/15/2019 Secondary to her pneumonia. Monitor serum sodium. (8) Bipolar disorder with moderate depression Is this a current diagnosis for this admission?: Yes Plan: 10/15/2019 The patient could not tell me her medication regimen. Await medication reconciliation from pharmacy. Need to monitor the QT interval while on azithromycin and Plaquenil. (9) Encounter for observation for suspected exposure to other biological agents ruled out Is this a current diagnosis for this admission?: Yes Plan: High suspicion for Covid-19 due to elevated ferritin, elevated d-dimer, pneumonia, underlying COPD, elevated white blood cell count with lymphopenia, elevated CPK greater than 2 times the upper limit normal and slightly elevated transaminases. - Time Time Spent with patient: 35 or more minutes Smoking Cessation Education: 3 to 10 minutes Medications reviewed and adjusted accordingly: Yes Anticipated discharge: Home - Inpatient Certification Based on my medical assessment, after consideration of the patient's comorbidities, presenting symptoms, or acuity I expect that the services needed warrant INPATIENT care.: Yes I certify that my determination is in accordance with my understanding of Medicare's requirements for reasonable and necessary INPATIENT services [42 CFR 412.3e].: Yes Medical Necessity: Need Close Monitoring Due to Risk of Patient Decompensation, Need For IV Fluids, Need for IV Antibiotics Post Hospital Care: 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
[2019-10-16] MEDS: POTASSI CL 20 MEQ/50 ML RIDER 20 MEQ/50 ML RTUPB IV SCH ×2 (00:48→02:34)
[2019-10-16] MEDS: ASCORBIC ACID 500 MG TABLET PO SCH ×4 (00:48→22:42)
[2019-10-16] MEDS: MAGNESIUM SULFATE/D5W 1 GM/100 ML RTUPB IV SCH ×2 (00:48→02:36)
[2019-10-16] MEDS ORDERED: NORMAL SALINE 1000 ML 500 ML IV ONE (00:57)
[2019-10-16] MEDS ORDERED: NICOTINE 14 MG/24 HR PATCH.TD24 TD PRN (01:55)
[2019-10-16] MEDS: NORMAL SALINE 1000 ML 1,000 ML IV PRN ×3 (03:00→14:26)
[2019-10-16] MEDS: PANTOPRAZOLE SODIUM 40 MG TABLET.DR PO SCH (06:19)
[2019-10-16 06:37] LABS: HEMOGLOBIN 11.7 g/dL (12.0-15.5); MEAN CORPUSCULAR HEMOGLOBIN 34.4 pg (27.0-33.4); MEAN CORPUSCULAR HGB CONC 35.4 g/dL (32.0-36.0); MEAN CORPUSCULAR VOLUME 97 fl (80-97); PLATELET COUNT 321 10^3/uL (150-450); RED BLOOD COUNT 3.39 10^6/uL (3.72-5.28); RED CELL DISTRIBUTION WIDTH 14.7 % (11.5-14.0); WHITE BLOOD COUNT 17.5 10^3/uL (4.0-10.5)
[2019-10-16 06:42] LABS: ANION GAP 14 (5-19); CALCIUM 8.1 mg/dL (8.4-10.2); CARBON DIOXIDE 15 mmol/L (22-30); CHLORIDE 108 mmol/L (98-107); GLUCOSE 108 mg/dL (75-110); PHOSPHORUS 4.8 mg/dL (2.5-4.5); POTASSIUM 3.6 mmol/L (3.6-5.0)
[2019-10-16 07:02] LABS: BLOOD UREA NITROGEN 66 mg/dL (7-20)
[2019-10-16 07:23] LABS: ABSOLUTE LYMPHOCYTES# (MANUAL) 0.5 10^3/uL (0.5-4.7); ABSOLUTE MONOCYTES # (MANUAL) 0.5 10^3/uL (0.1-1.4); BASOPHILS % (MANUAL) 0 % (0-2); EOSINOPHILS % (MANUAL) 0 % (0-6); LYMPHOCYTES % (MANUAL) 3 % (13-45); MONOCYTES % (MANUAL) 3 % (3-13); SEGMENTED NEUTROPHILS % (MAN) 94 % (42-78); TOTAL CELLS COUNTED 100
[2019-10-16 07:25] LABS: ANISOCYTOSIS SLIGHT; PLATELET COMMENT ADEQUATE; TOXIC VACUOLATION PRESENT
[2019-10-16] MEDS: ZINC SULFATE 220 MG CAPSULE PO SCH (09:38)
[2019-10-16] MEDS: HYDROXYCHLOROQUINE SULFATE 200 MG TABLET PO SCH ×2 (09:38→22:43)
[2019-10-16] MEDS ORDERED: THIAMINE HCL INJ 200 MG/2 ML VIAL IV SCH (10:00)
[2019-10-16] MEDS ORDERED: ENOXAPARIN SODIUM INJ 80 MG/0.8 ML DISP.SYRIN SUBCUT SCH (10:00)
[2019-10-16] MEDS ORDERED: FLUTICASONE/VILANTEROL 200-25 MCG/DOSE IH SCH (10:00)
[2019-10-16 10:33] LABS: APPEARANCE,URINE CLEAR; BILIRUBIN,URINE NEGATIVE (NEGATIVE); COLOR,URINE YELLOW; GLUCOSE, URINE NEGATIVE (NEGATIVE); KETONES,URINE NEGATIVE (NEGATIVE); LEUKOCYTE ESTERASE,URINE NEGATIVE (NEGATIVE); NITRITE,URINE NEGATIVE (NEGATIVE); PROTEIN,URINE NEGATIVE (NEGATIVE); UROBILINOGEN,URINE NEGATIVE mg/dL (<2.0)
[2019-10-16] MEDS: THIAMINE HCL 250 MG in NORMAL SALINE 50 ML IV SCH (11:58)
[2019-10-16] MEDS ORDERED: ACETAMINOPHEN 650 MG SUPP.RECT PR PRN (12:31)
--- NOTE | 2019-10-16 13:11 | Progress Note ---
Provider Note Provider Note: Procedure note: Patient is a 59-year-old female with a past medical history of COPD, CVA, DM 2, CKD, GERD, hiatal hernia, bipolar disease, and tobacco dependence with continuous use who was admitted 10/15/2019 with sepsis and acute respiratory failure secondary to pneumonia. Currently COVID PUI. Was called by nursing to provide assist with Hernandez catheter placement related to acute kidney injury with need for strict I&O's and critically ill patient and development of acute urinary retention. Nursing had attempted Hernandez catheter placement x5 and have been unsuccessful. On exam, patient was noted to have significant abdominal distention with easily palpable/firm/tender bladder and overflow urinary leakage. Limited pelvic exam revealed likely bladder prolapse as I did require digital reduction in order to visualize the urethra and place Hernandez catheter. A 14 Welsh Hernandez was placed utilizing standard sterile procedure. The patient did have slight discomfort but overall tolerated the procedure well and without complication. Balloon was inflated to 10 mL's utilizing the provided sterile saline. Patient was noted to have immediate clear urine output of 1000 mL's. Nursing was asked to clamp the Hernandez bag for 20 to 30 minutes prior to unclamping to prevent bladder spasm. Successful Hernandez placement was communicated to the patient primary provider. Urinalysis sent to the lab per his order. Total Procedure time: 25 min (r/t difficult anatomy and need for full PPE in Presumptive Positive COVID19 patient)
[2019-10-16] MEDS ORDERED: HYDROCODONE/ACETAMINOPHEN 5-325 MG TABLET PO PRN (16:25)
[2019-10-16] MEDS: LIDOCAINE 5% (700 MG) TRANSDERMAL ADH..PATCH TP SCH (17:09)
[2019-10-16] MEDS ORDERED: FUROSEMIDE INJ/PF 40 MG/4 ML SDV IV ONE (17:30)
--- NOTE | 2019-10-16 17:58 | PDOC PROGRESS REPORT ---
Subjective Progress Note for:: 10/16/19 Subjective:: Patient noted to have significant tach urinary retention this morning. Hernandez was placed with difficulty patient had about a liter output after placement of Hernandez. Patient is experiencing shortness of breath. Having some cough. Seems to be a little bit confused when assessed this morning with difficulty following instructions. Reason For Visit: PNEUMONIA,SEPSIS Physical Exam Vital Signs: Temp Pulse Resp BP Pulse Ox 99.5 F 93 32 H 135/57 H 98 10/16/19 16:00 10/16/19 16:00 10/16/19 16:00 10/16/19 16:00 10/16/19 16:21 Intake & Output 10/15/19 10/16/19 10/17/19 06:59 06:59 06:59 Intake Total 4477 2575.5 Output Total 1675 Balance 4477 900.5 Weight 73.5 kg General appearance: PRESENT: no acute distress, cooperative Neck exam: ABSENT: JVD Respiratory exam: PRESENT: crackles, decreased breath sounds - Right lung base, tachypnea, unlabored. ABSENT: retraction, wheezes Cardiovascular exam: PRESENT: RRR, +S1, +S2. ABSENT: tachycardia GI/Abdominal exam: PRESENT: soft. ABSENT: rebound, rigid, tenderness Extremities exam: ABSENT: pedal edema Neurological exam: PRESENT: alert, awake Results Laboratory Results: 10/16/19 05:49 10/16/19 05:49 10/15/19 10/15/19 10/15/19 17:22 17:22 17:22 WBC 18.3 H RBC 3.58 L Hgb 12.4 Hct 35.0 L MCV 98 H MCH 34.5 H MCHC 35.4 RDW 14.6 H Plt Count 323 Seg Neutrophils % 83.5 H Sodium 133.1 L Potassium 3.4 L Chloride 94 L Carbon Dioxide 20 L Anion Gap 19 BUN 113 H Creatinine 9.05 H Est GFR ( Amer) 5 L Glucose 117 H Lactic Acid Calcium 9.0 Phosphorus Magnesium Ferritin 710.00 H Total Bilirubin 0.8 AST 50 H Alkaline Phosphatase 107 Total Protein 7.8 Albumin 3.8 Urine Color Urine Appearance Urine pH Ur Specific [place] Urine Protein Urine Glucose (UA) Urine Ketones Urine Blood Urine Nitrite Ur Leukocyte Esterase Urine WBC (Auto) Urine RBC (Auto) 10/15/19 10/15/19 10/15/19 17:22 20:21 20:48 WBC RBC Hgb Hct MCV MCH MCHC RDW Plt Count Seg Neutrophils % Sodium Potassium Chloride Carbon Dioxide Anion Gap BUN Creatinine Est GFR ( Amer) Glucose Lactic Acid 0.6 L Calcium Phosphorus Magnesium 2.5 H Ferritin Total Bilirubin AST Alkaline Phosphatase Total Protein Albumin Urine Color YELLOW Urine Appearance CLOUDY Urine pH 5.0 Ur Specific [place] 1.017 Urine Protein 30 H Urine Glucose (UA) NEGATIVE Urine Ketones NEGATIVE Urine Blood SMALL H Urine Nitrite NEGATIVE Ur Leukocyte Esterase TRACE H Urine WBC (Auto) 4 Urine RBC (Auto) 1 10/16/19 10/16/19 10/16/19 05:49 05:49 10:00 WBC 17.5 H RBC 3.39 L Hgb 11.7 L Hct 33.0 L MCV 97 MCH 34.4 H MCHC 35.4 RDW 14.7 H Plt Count 321 Seg Neutrophils % Not Reportable Sodium 136.8 L Potassium 3.6 Chloride 108 H Carbon Dioxide 15 L Anion Gap 14 BUN 66 H D Creatinine 2.87 H Est GFR ( Amer) 20 L Glucose 108 Lactic Acid Calcium 8.1 L Phosphorus 4.8 H Magnesium 2.5 H Ferritin Total Bilirubin AST Alkaline Phosphatase Total Protein Albumin Urine Color YELLOW Urine Appearance CLEAR Urine pH 5.0 Ur Specific [place] 1.010 Urine Protein NEGATIVE Urine Glucose (UA) NEGATIVE Urine Ketones NEGATIVE Urine Blood SMALL H Urine Nitrite NEGATIVE Ur Leukocyte Esterase NEGATIVE Urine WBC (Auto) 1 Urine RBC (Auto) 1 10/15/19 10/15/19 17:22 17:22 Creatine Kinase 429 H CK-MB (CK-2) 2.76 Troponin I 0.025 NT-Pro-B Natriuret Pep 794 H Impressions: Chest X-Ray 10/15/19 17:26 IMPRESSION: Bilateral pneumonia and right pleural effusion. Assessment and Plan - Diagnosis (1) Pneumonia Qualifiers: Pneumonia type: due to unspecified organism Laterality: bilateral Lung location: lower lobe of lung Qualified Code(s): J18.9 - Pneumonia, unspecified organism Is this a current diagnosis for this admission?: Yes Plan: Bilateral opacities noted on chest x-ray suspicious for bilateral pneumonia. Patient has undergone testing for coronavirus. Currently on ceftriaxone and azithromycin. Follow-up blood cultures. (2) Acute respiratory failure with hypoxia Is this a current diagnosis for this admission?: Yes Plan: Likely secondary to pneumonia as well as moderate to large sized right pleural effusion. Having increased oxygen requirements currently on 4 to 5 L nasal cannula. Will give oxygen supplementation as needed. I have planned for thoracentesis to be done at bedside tomorrow morning. Will discuss with radiology to see if chest tube may be warranted given the size of the effusion. We will give a dose of Lasix to see if it helps. (3) Pleural effusion, right Is this a current diagnosis for this admission?: Yes Plan: Etiology is uncertain. Will require thoracentesis tomorrow and may be may require chest tube placement. Fluid analysis to follow with cytology. Patient does have a history of grade 2 diastolic dysfunction with moderate pulmonary hypertension on echo done last year. (4) Suspected 2019 novel coronavirus infection Is this a current diagnosis for this admission?: Yes Plan: Test result pending (5) COPD (chronic obstructive pulmonary disease) Qualifiers: COPD type: unspecified COPD Qualified Code(s): J44.9 - Chronic obstructive pulmonary disease, unspecified Is this a current diagnosis for this admission?: Yes Plan: Does not seem acutely exacerbated. Albuterol inhaler as needed, LABA/LAMA/ICS. (6) Acute kidney injury Is this a current diagnosis for this admission?: Yes Plan: Likely secondary to sepsis as well as post renal MARIA L. Patient notably put out about 1 L of urine after Hernandez was placed. Creatinine is a lot better today after receiving IV fluids. Continue to monitor BMP. (7) Sepsis Qualifiers: Sepsis type: sepsis due to unspecified organism Sepsis acute organ dys function status: with acute organ dysfunction Severe sepsis acute organ d ysfunction type: acute renal failure Acute renal failure type: with acute tubular necrosis Severe sepsis shock status: without septic shock Qualified Code(s): A41.9 - Sepsis, unspecified organism; R65.20 - Severe sepsis without septic shock; N17.0 - Acute kidney failure with tubular necrosis Is this a current diagnosis for this admission?: Yes Plan: Improved after fluid resuscitation. We will continue to watch closely.. (8) Tobacco dependence due to cigarettes Is this a current diagnosis for this admission?: Yes Plan: Nicotine patch - Time Time Spent with patient: 15-24 minutes
[2019-10-16] MEDS ORDERED: CEFTRIAXONE 1 GM/D5W RTU 1 GM/50 ML RTUPB IV SCH (18:00)
[2019-10-16] MEDS ORDERED: MELATONIN 3 MG TABLET PO SCH (22:00)
[2019-10-16] MEDS ORDERED: MELATONIN 5 MG TABLET PO SCH (22:00)
[2019-10-16] MEDS: AZITHROMYCIN 500 MG in DEXTROSE 5%-WATER 250 ML IV SCH (22:41)
[2019-10-16] MEDS: QUETIAPINE FUMARATE 100 MG TABLET PO SCH (22:42)
[2019-10-16] MEDS: PREGABALIN 75 MG CAPSULE PO SCH (22:42)
[2019-10-17] MEDS: PREGABALIN 75 MG CAPSULE PO SCH ×3 (05:31→21:23)
[2019-10-17] MEDS: PANTOPRAZOLE SODIUM 40 MG TABLET.DR PO SCH (05:32)
[2019-10-17 05:41] LABS: PROTHROMBIN TIME 14.2 SEC (11.4-15.4)
[2019-10-17 05:42] LABS: PARTIAL THROMBOPLASTIN TIME 36.3 SEC (23.5-35.8)
[2019-10-17 05:46] LABS: ALKALINE PHOSPHATASE 104 U/L (38-126); ANION GAP 10 (5-19); ASPARTATE AMINO TRANSFERASE 33 U/L (14-36); CALCIUM 8.9 mg/dL (8.4-10.2); CHLORIDE 103 mmol/L (98-107); GLUCOSE 125 mg/dL (75-110); POTASSIUM 3.3 mmol/L (3.6-5.0); TOTAL PROTEIN 6.2 g/dL (6.3-8.2)
[2019-10-17 05:57] LABS: BLOOD UREA NITROGEN 28 mg/dL (7-20)
[2019-10-17 06:14] LABS: CARBON DIOXIDE 28 mmol/L (22-30)
--- NOTE | 2019-10-17 08:05 | EKG REPORT ---
SEVERITY:- ABNORMAL ECG - SINUS RHYTHM PROLONGED QT INTERVAL LEFT ATRIAL ABNORMALITY : Confirmed by: Garfield Barger MD 17-Oct-2019 08:04:40
[2019-10-17] MEDS ORDERED: HYDROXYCHLOROQUINE SULFATE 200 MG TABLET PO SCH (10:00)
[2019-10-17] MEDS ORDERED: ENOXAPARIN SODIUM INJ 80 MG/0.8 ML DISP.SYRIN SUBCUT SCH (10:00)
[2019-10-17] MEDS: LORATADINE 10 MG TABLET PO SCH (10:13)
[2019-10-17] MEDS: FLUTICASONE NASAL SPRAY 50 MCG/SPRY 120 SPRAY/16 GM NASL SCH (10:14)
[2019-10-17] MEDS: FLUTICASONE/UMECLIDIN/VILANTER 100-62.5-25 MCG/DOSE IH SCH (10:14)
[2019-10-17] MEDS: AMLODIPINE BESYLATE 10 MG TABLET PO SCH (10:14)
[2019-10-17] MEDS: LISINOPRIL 10 MG TABLET PO SCH (10:15)
[2019-10-17] MEDS: ZINC SULFATE 220 MG CAPSULE PO SCH (10:15)
[2019-10-17] MEDS: ASCORBIC ACID 500 MG TABLET PO SCH (10:15)
--- NOTE | 2019-10-17 10:56 | RADIOLOGY REPORT (SQ) ---
EXAM DESCRIPTION: U/S CHEST IMAGES COMPLETED DATE/TIME: 10/17/2019 10:36 am REASON FOR STUDY: right pleural effusion. hypoxia. (PUI forCOVID-19) COMPARISON: Chest x-ray dated 10/15/2019 RADIATION DOSE: None. LIMITATIONS: None. PROCEDURE: Procedure, risks, benefit, and alternative explained to patient who then gave written con sent. Sonographic images of the right pleural space were obtained. FINDINGS: The study demonstrates no significant right pleural effusion. No intervention was perform ed. IMPRESSION: Minimal right pleural fluid. No intervention was performed. COMMENT: Patient medication list reviewed: Yes- Quality ID# [id number]:Eligible professional attests to doc umenting in the medical record they obtained, updated, or reviewed the patient's current medications. TECHNICAL DOCUMENTATION: JOB ID: [id number] 2010 [employer]- All Rights Reserved Reading location - IP/workstation name: [email or web address]
[2019-10-17] MEDS: LIDOCAINE 5% (700 MG) TRANSDERMAL ADH..PATCH TP SCH (13:31)
[2019-10-17] MEDS: THIAMINE HCL 250 MG in NORMAL SALINE 50 ML IV SCH (13:40)
--- NOTE | 2019-10-17 14:47 | PDOC PROGRESS REPORT ---
Subjective Progress Note for:: 10/17/19 Subjective:: Patient is not in much distress today. Still having cough and some shortness of breath but looks comfortable on exam. States that her breathing got better since yesterday evening. Has some pleuritic pain on the right side. Reason For Visit: PNEUMONIA,SEPSIS Physical Exam Vital Signs: Temp Pulse Resp BP Pulse Ox 97.9 F 96 28 H 109/52 L 94 10/17/19 12:00 10/17/19 14:00 10/17/19 12:00 10/17/19 12:00 10/17/19 12:00 Intake & Output 10/16/19 10/17/19 10/18/19 06:59 06:59 06:59 Intake Total 4477 3785.5 250 Output Total 5525 Balance 4477 -1739.5 250 Weight 73.5 kg 70.4 kg General appearance: PRESENT: no acute distress, cooperative Neck exam: ABSENT: JVD Respiratory exam: PRESENT: rhonchi, unlabored. ABSENT: tachypnea, wheezes Cardiovascular exam: PRESENT: RRR, +S1, +S2. ABSENT: tachycardia GI/Abdominal exam: PRESENT: soft. ABSENT: rebound, rigid, tenderness Neurological exam: PRESENT: alert, awake, oriented to person, oriented to place, oriented to time - Year but not month Results Laboratory Results: 10/16/19 05:49 10/17/19 04:20 10/17/19 04:20 Sodium 141.4 Potassium 3.3 L Chloride 103 Carbon Dioxide 28 D Anion Gap 10 BUN 28 H D Creatinine 1.17 Est GFR ( Amer) 57 L Glucose 125 H Calcium 8.9 Total Bilirubin 1.0 AST 33 Alkaline Phosphatase 104 Total Protein 6.2 L Albumin 3.0 L 10/15/19 20:48 Clean Catch Midstream Urine Culture - Final Mixed Urogenital [place] 10/15/19 10/15/19 17:22 17:22 Creatine Kinase 429 H CK-MB (CK-2) 2.76 Troponin I 0.025 NT-Pro-B Natriuret Pep 794 H Impressions: Chest X-Ray 10/15/19 17:26 IMPRESSION: Bilateral pneumonia and right pleural effusion. Chest Ultrasound 10/17/19 00:00 IMPRESSION: Minimal right pleural fluid. No intervention was performed. Assessment and Plan - Diagnosis (1) Pneumonia Qualifiers: Pneumonia type: due to unspecified organism Laterality: bilateral Lung location: lower lobe of lung Qualified Code(s): J18.9 - Pneumonia, unspecified organism Is this a current diagnosis for this admission?: Yes Plan: Mostly dense right lobar consolidation but also with bilateral opacities on chest x-ray. COVID-19 test is negative and ruled out. Currently on ceftriaxone and azithromycin. Follow-up blood cultures. (2) Acute respiratory failure with hypoxia Is this a current diagnosis for this admission?: Yes Plan: Likely secondary to pneumonia. Patient requiring about 4 L nasal cannula. Oxygen supplementation as needed. Ventimask if needed. (3) Pleural effusion, right Is this a current diagnosis for this admission?: Yes Plan: Requested thoracentesis to help with hypoxia. However bedside chest ultrasound was performed by the radiologist and he noted that there was only very mild to minimal right pleural effusion and not much to drain and most of the opacity seen on x-ray is actually consolidation. (4) COPD (chronic obstructive pulmonary disease) Qualifiers: COPD type: unspecified COPD Qualified Code(s): J44.9 - Chronic obstructive pulmonary disease, unspecified Is this a current diagnosis for this admission?: Yes Plan: Does not seem acutely exacerbated. Albuterol inhaler as needed, LABA/LAMA/ICS. (5) Acute kidney injury Is this a current diagnosis for this admission?: Yes Plan: Likely secondary to sepsis as well as post renal MARIA L. Patient notably put out about 1 L of urine after Hernandez was placed. Resolved. (6) Sepsis Qualifiers: Sepsis type: sepsis due to unspecified organism Sepsis acute organ dysfunction status: with acute organ dysfunction Severe sepsis acute organ dysfunction type: acute renal failure Acute renal failure type: with acute tubular necrosis Severe sepsis shock status: without septic shock Qualified Code(s): A41.9 - Sepsis, unspecified organism; R65.20 - Severe sepsis without septic shock; N17.0 - Acute kidney failure with tubular necrosis Is this a current diagnosis for this admission?: Yes Plan: Improved after fluid resuscitation. We will continue to watch closely.. (7) Tobacco dependence due to cigarettes Is this a current diagnosis for this admission?: Yes Plan: Nicotine patch - Time Time Spent with patient: 15-24 minutes
[2019-10-17] MEDS: TAMSULOSIN HCL 0.4 MG CAP.SR.24H PO SCH (17:11)
[2019-10-17] MEDS: CEFTRIAXONE 2 GM/D5W RTU 2 GM/50 ML RTUPB IV SCH (17:12)
[2019-10-17] MEDS: ACETAMINOPHEN 325 MG TABLET PO PRN (21:23)
[2019-10-17] MEDS: QUETIAPINE FUMARATE 100 MG TABLET PO SCH (21:24)
[2019-10-17] MEDS: MELATONIN 5 MG TABLET PO SCH (21:24)
[2019-10-17] MEDS: AZITHROMYCIN 500 MG in DEXTROSE 5%-WATER 250 ML IV SCH (21:37)
[2019-10-18 01:00] LABS: ARTERIAL BLOOD BASE EXCESS 4.1 mmol/L; ARTERIAL BLOOD H2CO3 1.17 mmol/L (1.05-1.35); ARTERIAL BLOOD HCO3 27.9 mmol/L (20-24); ARTERIAL BLOOD O2 SATURATION 88.9 % (94-98); ARTERIAL BLOOD PH 7.47 (7.35-7.45); ARTERIAL BLOOD PO2 51.8 mmHg (80-100); ARTERIAL BLOOD TOTAL CO2 29.1 mmol/L (21-25)
[2019-10-18 01:05] LABS: ARTERIAL BLOOD FIO2 ROOM AIR
[2019-10-18] MEDS ORDERED: RINGERS SOLUTION,LACTATED 1,000 ML IV ONE (02:30)
[2019-10-18 05:00] LABS: HEMATOCRIT 29.4 % (36.0-47.0); HEMOGLOBIN 10.2 g/dL (12.0-15.5); MEAN CORPUSCULAR HEMOGLOBIN 33.7 pg (27.0-33.4); MEAN CORPUSCULAR HGB CONC 34.5 g/dL (32.0-36.0); MEAN CORPUSCULAR VOLUME 98 fl (80-97); PLATELET COUNT 253 10^3/uL (150-450); RED BLOOD COUNT 3.01 10^6/uL (3.72-5.28); RED CELL DISTRIBUTION WIDTH 14.4 % (11.5-14.0); WHITE BLOOD COUNT 13.3 10^3/uL (4.0-10.5)
[2019-10-18 05:14] LABS: ANION GAP 7 (5-19); BLOOD UREA NITROGEN 21 mg/dL (7-20); CALCIUM 8.6 mg/dL (8.4-10.2); CARBON DIOXIDE 30 mmol/L (22-30); CHLORIDE 103 mmol/L (98-107); GLUCOSE 120 mg/dL (75-110)
[2019-10-18 05:19] LABS: POTASSIUM 2.8 mmol/L (3.6-5.0)
[2019-10-18 05:37] LABS: ABSOLUTE LYMPHOCYTES# (MANUAL) 3.5 10^3/uL (0.5-4.7); ABSOLUTE MONOCYTES # (MANUAL) 0.5 10^3/uL (0.1-1.4); BAND NEUTROPHILS % (MANUAL) 1 % (3-5); BASOPHILS % (MANUAL) 0 % (0-2); EOSINOPHILS % (MANUAL) 1 % (0-6); LYMPHOCYTES % (MANUAL) 25 % (13-45); MONOCYTES % (MANUAL) 4 % (3-13); POIKILOCYTOSIS SLIGHT; SEGMENTED NEUTROPHILS % (MAN) 68 % (42-78); TOTAL CELLS COUNTED 100; TOXIC GRANULATION SLIGHT; TOXIC VACUOLATION PRESENT
[2019-10-18 05:38] LABS: ANISOCYTOSIS SLIGHT; OVALOCYTES SLIGHT; PLATELET COMMENT ADEQUATE
[2019-10-18] MEDS: PREGABALIN 75 MG CAPSULE PO SCH ×3 (05:45→21:07)
[2019-10-18] MEDS: PANTOPRAZOLE SODIUM 40 MG TABLET.DR PO SCH (05:45)
[2019-10-18] MEDS: LISINOPRIL 10 MG TABLET PO SCH (09:18)
[2019-10-18] MEDS: FLUTICASONE NASAL SPRAY 50 MCG/SPRY 120 SPRAY/16 GM NASL SCH (09:19)
[2019-10-18] MEDS: AMLODIPINE BESYLATE 10 MG TABLET PO SCH (09:19)
[2019-10-18] MEDS: LORATADINE 10 MG TABLET PO SCH (09:19)
[2019-10-18] MEDS: FLUTICASONE/UMECLIDIN/VILANTER 100-62.5-25 MCG/DOSE IH SCH (09:19)
[2019-10-18] MEDS: POTASSIUM CHLORIDE 10 MEQ TABLET.ER PO SCH ×3 (09:19→17:34)
[2019-10-18] MEDS: LIDOCAINE 5% (700 MG) TRANSDERMAL ADH..PATCH TP SCH (09:20)
[2019-10-18] MEDS: ALBUTEROL SULFATE HFA (90 MCG/PUFF) 200 PUFF/8.5 GM MDI IH PRN ×2 (09:25→13:36)
[2019-10-18] MEDS ORDERED: POTASSI CL 20 MEQ/50 ML RIDER 20 MEQ/50 ML RTUPB IV ONE (10:01)
[2019-10-18] MEDS: POTASSIUM CHLORIDE 20 MEQ PACKET PO SCH ×2 (11:36→21:57)
[2019-10-18] MEDS: TAMSULOSIN HCL 0.4 MG CAP.SR.24H PO SCH (17:34)
[2019-10-18] MEDS: CEFTRIAXONE 2 GM/D5W RTU 2 GM/50 ML RTUPB IV SCH (17:35)
--- NOTE | 2019-10-18 18:07 | PDOC PROGRESS REPORT ---
Subjective Progress Note for:: 10/18/19 Subjective:: Patient having some diarrhea today. Discussed with nursing, can test for C. difficile if this continues. Suspect this is due to the antibiotics she has been given for her pneumonia. Blood pressure on the low side mildly tachycardic, oxygen saturation 99% on 5 L. Lungs actually sound quite good on exam today. Potassium is low and I have ordered repletion of this IV and p.o. ABG showed PO2 down to 52 on room air, coronavirus negative, blood cultures negative, urine culture mixed. Other than generalized fatigue and weakness patient does not have any new complaints other than mentioned above. Reason For Visit: PNEUMONIA,SEPSIS Physical Exam Vital Signs: Temp Pulse Resp BP Pulse Ox 100.1 F 95 20 112/57 L 92 10/18/19 15:22 10/18/19 15:22 10/18/19 15:22 10/18/19 15:22 10/18/19 15:22 Intake & Output 10/17/19 10/18/19 10/19/19 06:59 06:59 06:59 Intake Total 3785.5 3288.5 635 Output Total 5525 925 Balance -1739.5 2363.5 635 Weight 70.4 kg 70.4 kg General appearance: PRESENT: no acute distress, well-developed, well-nourished Head exam: PRESENT: atraumatic, normocephalic Eye exam: PRESENT: conjunctiva pink Mouth exam: PRESENT: moist Respiratory exam: PRESENT: clear to auscultation kathryn. ABSENT: rales, rhonchi, wheezes Cardiovascular exam: PRESENT: RRR. ABSENT: diastolic murmur, rubs, systolic murmur GI/Abdominal exam: PRESENT: normal bowel sounds, soft. ABSENT: distended, guarding, mass, organolmegaly, rebound, tenderness Rectal exam: PRESENT: deferred Neurological exam: PRESENT: alert, awake, oriented to person, oriented to place, oriented to time, oriented to situation Psychiatric exam: PRESENT: appropriate affect, normal mood Skin exam: PRESENT: dry, intact, warm Results Laboratory Results: 10/18/19 04:34 10/18/19 04:34 10/18/19 10/18/19 10/18/19 00:49 04: 04:34 WBC 13.3 H RBC 3.01 L Hgb 10.2 L Hct 29.4 L MCV 98 H MCH 33.7 H MCHC 34.5 RDW 14.4 H Plt Count 253 Seg Neutrophils % Not Reportable Carbonic Acid 1.17 HCO3/H2CO3 Ratio 23:1 ABG pH 7.47 H ABG pCO2 39.0 ABG pO2 51.8 L ABG HCO3 27.9 H ABG O2 Saturation 88.9 L ABG Base Excess 4.1 FiO2 ROOM AIR Sodium 139.9 Potassium 2.8 L* Chloride 103 Carbon Dioxide 30 Anion Gap 7 BUN 21 H Creatinine 0.97 Est GFR ( Amer) > 60 Glucose 120 H Calcium 8.6 10/15/19 20:21 Throat Throat Culture - Final NORMAL [place] 10/15/19 10/15/19 17:22 17:22 Creatine Kinase 429 H CK-MB (CK-2) 2.76 Troponin I 0.025 NT-Pro-B Natriuret Pep 794 H Impressions: Chest X-Ray 10/15/19 17:26 IMPRESSION: Bilateral pneumonia and right pleural effusion. Chest Ultrasound 10/17/19 00:00 IMPRESSION: Minimal right pleural fluid. No intervention was performed. Assessment and Plan - Diagnosis (1) Pneumonia Qualifiers: Pneumonia type: due to unspecified organism Laterality: bilateral Lung location: lower lobe of lung Qualified Code(s): J18.9 - Pneumonia, unspecified organism Is this a current diagnosis for this admission?: Yes Plan: Mostly dense right lobar consolidation but also with bilateral opacities on chest x-ray. COVID-19 test is negative and ruled out. Currently on ceftriaxone and azithrom ycin. Follow-up blood cultures. 10/18/2019 Antibiotics continued with ceftriaxone and azithromycin Blood cultures negative (2) Acute respiratory failure with hypoxia Is this a current diagnosis for this admission?: Yes Plan: Likely secondary to pneumonia. Patient requiring about 4 L nasal cannula. Oxygen supplementation as needed. Ventimask if needed. 10/18/2019 Wean oxygen as able. In COPD patient oxygen goal should be 89 to 94%, no higher Continue inhalers and bronchial hygiene (3) COPD (chronic obstructive pulmonary disease) Qualifiers: COPD type: unspecified COPD Qualified Code(s): J44.9 - Chronic obstructive pulmonary disease, unspecified Is this a current diagnosis for this admission?: Yes Plan: Does not seem acutely exacerbated. Albuterol inhaler as needed, LABA/LAMA/ICS. 10/17/2022 Continue home inhalers, also as needed nebulizers (4) Acute kidney injury Is this a current diagnosis for this admission?: Yes Plan: Likely secondary to sepsis as well as post renal MARIA L. Patient notably put out about 1 L of urine after Hernandez was placed. Resolved. 10/18/2019 Renal function is back to baseline (5) Pleural effusion, right Is this a current diagnosis for this admission?: Yes Plan: Requested thoracentesis to help with hypoxia. However bedside chest ultrasound was performed by the radiologist and he noted that there was only very mild to minimal right pleural effusion and not much to drain and most of the opacity seen on x-ray is actually consolidation. 10/17/2021 Breathing seems somewhat improved though still hypoxic Repeat chest x-ray tomorrow to reevaluate pleural effusion (6) Sepsis Qualifiers: Sepsis type: sepsis due to unspecified organism Sepsis acute organ dysfunction status: with acute organ dysfunction Severe sepsis acute organ dysfunction type: acute renal failure Acute renal failure type: with acute tubular necrosis Severe sepsis shock status: without septic shock Qualified Code(s): A41.9 - Sepsis, unspecified organism; R65.20 - Severe sepsis without septic shock; N17.0 - Acute kidney failure with tubular necrosis Is this a current diagnosis for this admission?: Yes Plan: Improved after fluid resuscitation. We will continue to watch closely.. 10/18/2019 Antibiotics as above Cultures as above, urine culture mixed (7) Tobacco dependence due to cigarettes Is this a current diagnosis for this admission?: Yes - Time Time Spent with patient: 25-34 minutes Medications reviewed and adjusted accordingly: Yes - Inpatient Certification Medical Necessity: Significant Comorbidiites Make Outpatient Treatment Too Risky, Need Close Monitoring Due to Risk of Patient Decompensation, Need for IV Antibiotics
[2019-10-18 19:31] LABS: C DIFFICILE GDH NEGATIVE (NEGATIVE)
[2019-10-18] MEDS: MELATONIN 5 MG TABLET PO SCH (21:07)
[2019-10-18] MEDS: ACETAMINOPHEN 325 MG TABLET PO PRN (21:08)
[2019-10-18] MEDS: AZITHROMYCIN 500 MG in DEXTROSE 5%-WATER 250 ML IV SCH (21:08)
[2019-10-18] MEDS: QUETIAPINE FUMARATE 100 MG TABLET PO SCH (21:09)
[2019-10-19] MEDS: PREGABALIN 75 MG CAPSULE PO SCH ×3 (05:59→21:04)
[2019-10-19] MEDS: PANTOPRAZOLE SODIUM 40 MG TABLET.DR PO SCH (06:00)
[2019-10-19] MEDS: POTASSIUM CHLORIDE 10 MEQ TABLET.ER PO SCH ×3 (08:16→16:02)
[2019-10-19] MEDS: LORATADINE 10 MG TABLET PO SCH (08:16)
[2019-10-19] MEDS: FLUTICASONE/UMECLIDIN/VILANTER 100-62.5-25 MCG/DOSE IH SCH (09:08)
[2019-10-19] MEDS: AMLODIPINE BESYLATE 10 MG TABLET PO SCH (09:08)
[2019-10-19] MEDS: FLUTICASONE NASAL SPRAY 50 MCG/SPRY 120 SPRAY/16 GM NASL SCH (09:08)
[2019-10-19] MEDS: LISINOPRIL 10 MG TABLET PO SCH (09:08)
[2019-10-19] MEDS: POTASSIUM CHLORIDE 20 MEQ PACKET PO SCH (09:08)
[2019-10-19] MEDS: LIDOCAINE 5% (700 MG) TRANSDERMAL ADH..PATCH TP SCH (09:09)
--- NOTE | 2019-10-19 09:42 | RADIOLOGY REPORT (SQ) ---
EXAM DESCRIPTION: CHEST 2 VIEWS IMAGES COMPLETED DATE/TIME: 10/19/2019 9:01 am REASON FOR STUDY: pleural effusion COMPARISON: 10/15/2019 NUMBER OF VIEWS: Two view TECHNIQUE: Frontal and lateral radiographic images of the chest acquired. LIMITATIONS: None. FINDINGS: LUNGS AND PLEURA: There has been improved aeration in the right lower lobe with residual c onsolidation and small effusion. There is increasing consolidation in the left lung lateral to the h ilum. No cavitation. MEDIASTINUM AND HILAR STRUCTURES: Stable heart size and mediastinal structures. HEART AND VASCULAR STRUCTURES: Stable appearance. BONES: No acute findings. HARDWARE: None in the chest. OTHER: No other significant finding. IMPRESSION: Improved aeration in the right lung with rehydration or progressing pneumonia in the lef t lung. TECHNICAL DOCUMENTATION: JOB ID: [id number] 2010 [employer]- All Rights Reserved Reading location - IP/workstation name: [email or web address]
[2019-10-19 12:01] LABS: ANION GAP 5 (5-19); BLOOD UREA NITROGEN 13 mg/dL (7-20); CALCIUM 8.9 mg/dL (8.4-10.2); GLUCOSE 94 mg/dL (75-110); POTASSIUM 4.8 mmol/L (3.6-5.0)
[2019-10-19 12:06] LABS: CARBON DIOXIDE 30 mmol/L (22-30); CHLORIDE 107 mmol/L (98-107)
--- NOTE | 2019-10-19 16:43 | PDOC PROGRESS REPORT ---
Subjective Progress Note for:: 10/19/19 Subjective:: Still having some mild diarrhea. C. difficile negative. Started probiotics. Need to titrate supplemental oxygen down as patient is comfortably sitting in bed not wearing any today. Reviewed chest x-ray personally and this looks better than previous one. Reviewed BMP which showed potassium is repleted now. Gradual improvement overall. No new complaints today other than persistent fatigue and generalized weakness. Reason For Visit: PNEUMONIA,SEPSIS Physical Exam Vital Signs: Temp Pulse Resp BP Pulse Ox 99.0 F 99 16 128/53 H 90 L 10/19/19 11:03 10/19/19 14:00 10/19/19 11:03 10/19/19 11:03 10/19/19 11:03 Intake & Output 10/18/19 10/19/19 10/20/19 06:59 06:59 06:59 Intake Total 3288.5 1415 840 Output Total 925 1150 550 Balance 2363.5 265 290 Weight 70.4 kg 70.4 kg General appearance: PRESENT: no acute distress, well-developed, well-nourished Head exam: PRESENT: atraumatic, normocephalic Eye exam: PRESENT: conjunctiva pink Mouth exam: PRESENT: moist Respiratory exam: PRESENT: crackles - Very scant crackles, nearly clear. ABSENT: rales, rhonchi, wheezes Cardiovascular exam: PRESENT: RRR. ABSENT: diastolic murmur, rubs, systolic murmur GI/Abdominal exam: PRESENT: normal bowel sounds, soft. ABSENT: distended, guarding, mass, organolmegaly, rebound, tenderness Rectal exam: PRESENT: deferred Neurological exam: PRESENT: alert, awake, oriented to person, oriented to place, oriented to time, oriented to situation Skin exam: PRESENT: dry, intact, warm Results Laboratory Results: 10/18/19 04:34 10/19/19 10:53 10/19/19 10:53 Sodium 142.1 Potassium 4.8 Chloride 107 Carbon Dioxide 30 Anion Gap 5 BUN 13 Creatinine 0.69 Est GFR ( Amer) > 60 Glucose 94 Calcium 8.9 10/15/19 10/15/19 17:22 17:22 Creatine Kinase 429 H CK-MB (CK-2) 2.76 Troponin I 0.025 NT-Pro-B Natriuret Pep 794 H Impressions: Chest Ultrasound 10/17/19 00:00 IMPRESSION: Minimal right pleural fluid. No intervention was performed. Chest X-Ray 10/19/19 00:00 IMPRESSION: Improved aeration in the right lung with rehydration or progressing pneumonia in the left lung. Assessment and Plan - Diagnosis (1) Pneumonia Qualifiers: Pneumonia type: due to unspecified organism Laterality: bilateral Lung location: lower lobe of lung Qualified Code(s): J18.9 - Pneumonia, unspecified organism Is this a current diagnosis for this admission?: Yes Plan: Mostly dense right lobar consolidation but also with bilateral opacities on chest x-ray. COVID-19 test is negative and ruled out. Currently on ceftriaxone and azithromycin. Follow-up blood cultures. 10/18/2019 Antibiotics continued with ceftriaxone and azithromycin Blood cultures negative 10/19/2019 Repeat chest x-ray looks improved, patient is clinically improved as well Continue antibiotics to completion (2) Acute respiratory failure with hypoxia Is this a current diagnosis for this admission?: Yes Plan: Likely secondary to pneumonia. Patient requiring about 4 L nasal cannula. Oxygen supplementation as needed. Ventimask if needed. 10/18/2019 Wean oxygen as able. In COPD patient oxygen goal should be 89 to 94%, no h igher Continue inhalers and bronchial hygiene 10/19/2019 Need to continue actively weaning supplemental oxygen (3) COPD (chronic obstructive pulmonary disease) Qualifiers: COPD type: unspecified COPD Qualified Code(s): J44.9 - Chronic obstructive pulmonary disease, unspecified Is this a current diagnosis for this admission?: Yes (4) Acute kidney injury Is this a current diagnosis for this admission?: Yes (5) Pleural effusion, right Is this a current diagnosis for this admission?: Yes Plan: Requested thoracentesis to help with hypoxia. However bedside chest ultrasound was performed by the radiologist and he noted that there was only very mild to minimal right pleural effusion and not much to drain and most of the opacity seen on x-ray is actually consolidation. 10/17/2021 Breathing seems somewhat improved though still hypoxic Repeat chest x-ray did not specifically show a target for thoracentesis (6) Sepsis Qualifiers: Sepsis type: sepsis due to unspecified organism Sepsis acute organ dysfunction status: with acute organ dysfunction Severe sepsis acute organ dysfunction type: acute renal failure Acute renal failure type: with acute tubular necrosis Severe sepsis shock status: without septic shock Qualified Code(s): A41.9 - Sepsis, unspecified organism; R65.20 - Severe sepsis without s eptic shock; N17.0 - Acute kidney failure with tubular necrosis Is this a current diagnosis for this admission?: Yes (7) Tobacco dependence due to cigarettes Is this a current diagnosis for this admission?: Yes - Time Time Spent with patient: 25-34 minutes - Inpatient Certification Medical Necessity: Significant Comorbidiites Make Outpatient Treatment Too Risky, Need Close Monitoring Due to Risk of Patient Decompensation, Need for IV Antibiotics
[2019-10-19] MEDS: LACTOBACILLUS ACIDOPHILUS 250 MG TAB PO SCH (17:18)
[2019-10-19] MEDS: CEFTRIAXONE 2 GM/D5W RTU 2 GM/50 ML RTUPB IV SCH (17:18)
[2019-10-19] MEDS: TAMSULOSIN HCL 0.4 MG CAP.SR.24H PO SCH (17:19)
[2019-10-19] MEDS: AZITHROMYCIN 500 MG in DEXTROSE 5%-WATER 250 ML IV SCH (21:03)
[2019-10-19] MEDS: MELATONIN 5 MG TABLET PO SCH (21:04)
[2019-10-19] MEDS: QUETIAPINE FUMARATE 100 MG TABLET PO SCH (21:04)
[2019-10-20] MEDS: PREGABALIN 75 MG CAPSULE PO SCH ×2 (05:56→14:50)
[2019-10-20] MEDS: PANTOPRAZOLE SODIUM 40 MG TABLET.DR PO SCH (05:56)
[2019-10-20] MEDS ORDERED: FLUTICASONE/UMECLIDIN/VILANTER 100-62.5-25 MCG/DOSE IH SCH (06:00)
[2019-10-20] MEDS: LORATADINE 10 MG TABLET PO SCH (07:50)
[2019-10-20] MEDS: LIDOCAINE 5% (700 MG) TRANSDERMAL ADH..PATCH TP SCH (11:29)
[2019-10-20] MEDS: LACTOBACILLUS ACIDOPHILUS 250 MG TAB PO SCH (11:29)
[2019-10-20] MEDS: FLUTICASONE NASAL SPRAY 50 MCG/SPRY 120 SPRAY/16 GM NASL SCH (11:29)
[2019-10-20] MEDS: LISINOPRIL 10 MG TABLET PO SCH (11:32)
[2019-10-20] MEDS: AMLODIPINE BESYLATE 10 MG TABLET PO SCH (11:32)
[2019-10-20] MEDS ORDERED: LOPERAMIDE HCL 2 MG CAPSULE PO PRN (11:43)
--- NOTE | 2019-10-20 14:57 | PDOC DISCHARGE SUMMARY ---
Impression - Admit/DC Date/PCP Admission Date/Primary Care Provider: 10/15/19 23:06 WALI CHAPA MD Discharge Date: 10/20/19 - Discharge Diagnosis (1) Pneumonia Is this a current diagnosis for this admission?: Yes (2) Acute respiratory failure with hypoxia Is this a current diagnosis for this admission?: Yes (3) COPD (chronic obstructive pulmonary disease) Is this a current diagnosis for this admission?: Yes (4) Acute kidney injury Is this a current diagnosis for this admission?: Yes (5) Pleural effusion, right Is this a current diagnosis for this admission?: Yes (6) Sepsis Is this a current diagnosis for this admission?: Yes (7) Tobacco dependence due to cigarettes Is this a current diagnosis for this admission?: Yes - Additional Information Resuscitation Status: Full Code Discharge Diet: As Tolerated Discharge Activity: Activity As Tolerated Referrals: WALI CHAPA MD [Primary Care Provider] - 11/08/19 1:00 pm (COVID NEGATIVE) Prescriptions: Azithromycin 500 mg PO DAILY 2 Days #2 tablet Nicotine [Nicoderm 14 mg/24 Hr Transdermal Patch] 1 each TD DAILYP PRN #30 patch.td24 PRN Reason: Home Medications: Omeprazole 20 mg PO DAILY 03/19/16 Albuterol Sulfate [Albuterol Sulfate Hfa] 2 puff IH Q4HP PRN 10/16/19 Amlodipine Besylate [Norvasc 10 mg Tablet] 10 mg PO DAILY 10/16/19 Budesonide [Pulmicort Neb 0.5 mg/2 ml Ampul] 1 vial IH BID 10/16/19 Fluticasone Propionate [Flonase Nasal Rector 50 Mcg/Rector 16 gm] 2 spray NASL DAILY 10/16/19 Fluticasone/Umeclidin/Vilanter [Trelegy 100-62.5-25 Mcg Ellipta 14 Dose/Dpi] 1 puff IH DAILY 10/16/19 Hydrocodone/Acetaminophen [Bronx 5-325 mg Tablet] 1 tab PO Q8HP PRN 10/16/19 Lidocaine [Lidocaine Pain Relief] 1 patch TOP DAILY 10/16/19 Lisinopril [Zestril] 40 mg PO DAILY 10/16/19 Loratadine [Claritin 10 mg Tablet] 10 mg PO QAM 10/16/19 Pregabalin [Lyrica] 200 mg PO TID 10/16/19 Quetiapine Fumarate [Quetiapine Fumarate ER] 300 mg PO QPM 10/16/19 Azithromycin 500 mg PO DAILY 2 Days #2 tablet 10/20/19 Lactobacillus Acidophilus [Bacid 250 mg Tablet] 250 mg PO BID tab 10/20/19 Nicotine [Nicoderm 14 mg/24 Hr Transdermal Patch] 1 each TD DAILYP PRN #30 patch.td24 10/20/19 History of Present Illiness History of Present Illness: Per H&P: "NACHO PARK is a 59-year-old female with a history of COPD who still smokes 1/2 pack cigarettes daily. She states for the last week or more she has been feeling poorly. She is already on oxygen at home but states that she desaturates and gets very short of breath with minimal exertion. She denies fever or chills. She states that she has a cough but it is not terribly productive. She clearly is having increased work of breathing. Her chest x-ray shows bilateral pneumonia with the right lower lobe most significantly impacted. She has an elevated white blood cell count as well as lymphopenia, increased ferritin level, increased d-dimer and a severe acute kidney injury. She states that her intake has been extremely limited over the past 2 weeks. Her blood pressure was low but she responded to fluids. I discussed the case with the wreath maker and we will admit the patient to the fifth floor for high index of suspicion of Covid-19 virus with underlying bilateral pneumonia, COPD and acute kidney injury." Hospital Course Hospital Course: Patient admitted for respiratory failure with hypoxia due to multifocal pneumonia seen on chest x-ray. Coronavirus test was negative. Patient started on ceftriaxone/azithromycin and continued on this until day of discharge when she was continued on 2 additional days of azithromycin to continue at home. She is encouraged on multiple occasions to stop smoking permanently and I did also mention the particular dangers nature of smoking in the middle of a pandemic caused by a pulmonary virus. She voiced understanding and said she would think about it. Patient will need to follow-up with PCP, pulmonology, urology. She did have some urinary retention here and we did a void trial which pt had zero residual on bladder scan. (1) Pneumonia Mostly dense right lobar consolidation but also with bilateral opacities on chest x-ray. COVID-19 test is negative and ruled out. Currently on ceftriaxone and azithromycin. Follow-up blood cultures. 10/18/2019 Antibiotics continued with ceftriaxone and azithromycin Blood cultures negative 10/19/2019 Repeat chest x-ray looks improved, patient is clinically improved as well Continue antibiotics to completion (2) Acute respiratory failure with hypoxia Likely secondary to pneumonia. Patient requiring about 4 L nasal cannula. Oxygen supplementation as needed. Ventimask if needed. 10/18/2019 Wean oxygen as able. In COPD patient oxygen goal should be 89 to 94%, no higher Continue inhalers and bronchial hygiene 10/19/2019 Need to continue actively weaning supplemental oxygen (3) COPD (chronic obstructive pulmonary disease) (4) Acute kidney injury (5) Pleural effusion, right Requested thoracentesis to help with hypoxia. However bedside chest ultrasound was performed by the radiologist and he noted that there was only very mild to minimal right pleural effusion and not much to drain and most of the opacity seen on x-ray is actually consolidation. 10/17/2021 Breathing seems somewhat improved though still hypoxic Repeat chest x-ray did not specifically show a target for thoracentesis (6) Sepsis (7) Tobacco dependence due to cigarettes Physical Exam Vital Signs: Temp Pulse Resp BP Pulse Ox 99.6 F 89 20 111/58 L 93 10/20/19 11:54 10/20/19 11:54 10/20/19 11:54 10/20/19 11:54 10/20/19 11:54 Intake & Output 10/19/19 10/20/19 10/21/19 06:59 06:59 06:59 Intake Total 1415 1616 360 Output Total 1150 1502 200 Balance 265 114 160 Weight 70.4 kg 70.7 kg 70.7 kg General appearance: PRESENT: no acute distress, well-developed, well-nourished Head exam: PRESENT: atraumatic, normocephalic Eye exam: PRESENT: conjunctiva pink Mouth exam: PRESENT: moist Respiratory exam: PRESENT: clear to auscultation kathryn. ABSENT: rales, rhonchi, wheezes Cardiovascular exam: PRESENT: RRR. ABSENT: diastolic murmur, rubs, systolic murmur GI/Abdominal exam: PRESENT: normal bowel sounds, soft. ABSENT: distended, guarding, mass, organolmegaly, rebound, tenderness Rectal exam: PRESENT: deferred Musculoskeletal exam: PRESENT: ambulatory Neurological exam: PRESENT: alert, awake, oriented to person, oriented to place, oriented to time, oriented to situation Psychiatric exam: PRESENT: appropriate affect, normal mood Skin exam: PRESENT: dry, intact, warm Results Laboratory Results: WBC 13.3 10^3/uL (4.0-10.5) H 10/18/19 04:34 RBC 3.01 10^6/uL (3.72-5.28) L 10/18/19 04:34 Hgb 10.2 g/dL (12.0-15.5) L 10/18/19 04:34 Hct 29.4 % (36.0-47.0) L 10/18/19 04:34 MCV 98 fl (80-97) H 10/18/19 04:34 MCH 33.7 pg (27.0-33.4) H 10/18/19 04:34 MCHC 34.5 g/dL (32.0-36.0) 10/18/19 04:34 RDW 14.4 % (11.5-14.0) H 10/18/19 04:34 Plt Count 253 10^3/uL (150-450) 10/18/19 04:34 Lymph % (Auto) Not Reportable 10/18/19 04:34 Tyrrell % (Auto) Not Reportable 10/18/19 04:34 Eos % (Auto) Not Reportable 10/18/19 04:34 Baso % (Auto) Not Reportable 10/18/19 04:34 Absolute Neuts (auto) Not Reportable 10/18/19 04:34 Absolute Lymphs (auto) Not Reportable 10/18/19 04:34 Absolute Monos (auto) Not Reportable 10/18/19 04:34 Absolute Eos (auto) Not Reportable 10/18/19 04:34 Absolute Basos (auto) Not Reportable 10/18/19 04:34 Total Counted 100 10/18/19 04:34 Seg Neutrophils % Not Reportable 10/18/19 04:34 Seg Neuts % (Manual) 68 % (42-78) 10/18/19 04:34 Band Neutrophils % 1 % (3-5) L 10/18/19 04:34 Lymphocytes % (Manual) 25 % (13-45) 10/18/19 04:34 Atypical Lymphs % 1 % (0) 10/18/19 04:34 Monocytes % (Manual) 4 % (3-13) 10/18/19 04:34 Eosinophils % (Manual) 1 % (0-6) 10/18/19 04:34 Basophils % (Manual) 0 % (0-2) 10/18/19 04:34 Abs Neuts (Manual) 9.2 10^3/uL (1.7-8.2) H 10/18/19 04:34 Abs Lymphs (Manual) 3.5 10^3/uL (0.5-4.7) 10/18/19 04:34 Abs Monocytes (Manual) 0.5 10^3/uL (0.1-1.4) 10/18/19 04:34 Absolute Eos (Manual) 0.1 10^3/uL (0.0-0.6) 10/18/19 04:34 Abs Basophils (Manual) 0.0 10^3/uL (0.0-0.2) 10/18/19 04:34 Toxic Granulation SLIGHT 10/18/19 04:34 Toxic Vacuolation PRESENT 10/18/19 04:34 Platelet Comment ADEQUATE 10/18/19 04:34 Poikilocytosis SLIGHT 10/18/19 04:34 Anisocytosis SLIGHT 10/18/19 04:34 Ovalocytes SLIGHT 10/18/19 04:34 PT 14.2 SEC (11.4-15.4) 10/17/19 04:20 INR 1.10 10/17/19 04:20 APTT 36.3 SEC (23.5-35.8) H 10/17/19 04:20 D-Dimer 7.70 ug/mL (0.00-0.50) H 10/15/19 17:22 Carbonic Acid 1.17 mmol/L (1.05-1.35) 10/18/19 00:49 HCO3/H2CO3 Ratio 23:1 10/18/19 00:49 ABG pH 7.47 (7.35-7.45) H 10/18/19 00:49 ABG pCO2 39.0 mmHg (35-45) 10/18/19 00:49 ABG pO2 51.8 mmHg (80-100) L 10/18/19 00:49 ABG HCO3 27.9 mmol/L (20-24) H 10/18/19 00:49 ABG Total CO2 29.1 mmol/L (21-25) H 10/18/19 00:49 ABG O2 Saturation 88.9 % (94-98) L 10/18/19 00:49 ABG Base Excess 4.1 mmol/L 10/18/19 00:49 FiO2 ROOM AIR 10/18/19 00:49 Sodium 142.1 mmol/L (137-145) 10/19/19 10:53 Potassium 4.8 mmol/L (3.6-5.0) 10/19/19 10:53 Chloride 107 mmol/L (98-107) 10/19/19 10:53 Carbon Dioxide 30 mmol/L (22-30) 10/19/19 10:53 Anion Gap 5 (5-19) 10/19/19 10:53 BUN 13 mg/dL (7-20) 10/19/19 10:53 Creatinine 0.69 mg/dL (0.52-1.25) 10/19/19 10:53 Est GFR ( Amer) > 60 (>60) 10/19/19 10:53 Est GFR (MDRD) Non-Af > 60 (>60) 10/19/19 10:53 Glucose 94 mg/dL (75-110) 10/19/19 10:53 Lactic Acid 0.6 mmol/L (0.7-2.1) L 10/15/19 20:21 Calcium 8.9 mg/dL (8.4-10.2) 10/19/19 10:53 Phosphorus 4.8 mg/dL (2.5-4.5) H 10/16/19 05:49 Magnesium 2.5 mg/dL (1.6-2.3) H 10/16/19 05:49 Ferritin 710.00 ng/mL (11.1-264.0) H 10/15/19 17:22 Total Bilirubin 1.0 mg/dL (0.2-1.3) 10/17/19 04:20 Direct Bilirubin 0.0 mg/dL (0.0-0.4) 10/17/19 04:20 Neonat Total Bilirubin Not Reportable 10/17/19 04:20 Neonat Direct Bilirubin Not Reportable 10/17/19 04:20 Neonat Indirect Bili Not Reportable 10/17/19 04:20 AST 33 U/L (14-36) 10/17/19 04:20 ALT 17 U/L (<35) 10/17/19 04:20 Alkaline Phosphatase 104 U/L (38-126) 10/17/19 04:20 Lactate Dehydrogenase 204 U/L (120-246) 10/17/19 04:20 Creatine Kinase 429 U/L (30-135) H 10/15/19 17:22 CK-MB (CK-2) 2.76 ng/mL (<4.55) 10/15/19 17:22 Troponin I 0.025 ng/mL 10/15/19 17:22 NT-Pro-B Natriuret Pep 794 pg/mL (<125) H 10/15/19 17:22 Total Protein 6.2 g/dL (6.3-8.2) L 10/17/19 04:20 Albumin 3.0 g/dL (3.5-5.0) L 10/17/19 04:20 Urine Color YELLOW 10/16/19 10:00 Urine Appearance CLEAR 10/16/19 10:00 Urine pH 5.0 (5.0-9.0) 10/16/19 10:00 Ur Specific V[place] 1.010 10/16/19 10:00 Urine Protein NEGATIVE mg/dL (NEGATIVE) 10/16/19 10:00 Urine Glucose (UA) NEGATIVE mg/dL (NEGATIVE) 10/16/19 10:00 Urine Ketones NEGATIVE mg/dL (NEGATIVE) 10/16/19 10:00 Urine Blood SMALL (NEGATIVE) H 10/16/19 10:00 Urine Nitrite NEGATIVE (NEGATIVE) 10/16/19 10:00 Urine Bilirubin NEGATIVE (NEGATIVE) 10/16/19 10:00 Urine Urobilinogen NEGATIVE mg/dL (<2.0) 10/16/19 10:00 Ur Leukocyte Esterase NEGATIVE (NEGATIVE) 10/16/19 10:00 Urine WBC (Auto) 1 /HPF 10/16/19 10:00 Urine RBC (Auto) 1 /HPF 10/16/19 10:00 U Hyaline Cast (Auto) 7 /LPF 10/16/19 10:00 Urine Bacteria (Auto) 2+ /HPF 10/16/19 10:00 Squamous Epi Cells Auto <1 /HPF 10/16/19 10:00 Urine Mucus (Auto) RARE /LPF 10/16/19 10:00 Urine Ascorbic Acid NEGATIVE (NEGATIVE) 10/16/19 10:00 Stl C. Difficile GDH Ag NEGATIVE (NEGATIVE) 10/18/19 18:00 Stl C.difficile Tox A&B NEGATIVE (NEGATIVE) 10/18/19 18:00 COVID-19 Source NASOPHARYNGEAL 10/15/19 22:41 COVID-19 (ASHER) NOT DETECTED 10/15/19 22:41 Influenza A (Rapid) NEGATIVE (NEGATIVE) 10/15/19 20:21 Influenza B (Rapid) NEGATIVE (NEGATIVE) 10/15/19 20:21 Group A Strep Rapid NEGATIVE (NEGATIVE) 10/15/19 20:21 10/15/19 17:22 CK-MB (CK-2) 2.76 Troponin I 0.025 NT-Pro-B Natriuret Pep 794 H Impressions: Chest X-Ray 10/15/19 17:26 IMPRESSION: Bilateral pneumonia and right pleural effusion. Chest Ultrasound 10/17/19 00:00 IMPRESSION: Minimal right pleural fluid. No intervention was performed. Chest X-Ray 10/19/19 00:00 IMPRESSION: Improved aeration in the right lung with rehydration or progressing pneumonia in the left lung. Plan Time Spent: Greater than 30 Minutes Stroke Is this a Stroke Patient?: No Acute Heart Failure - Is this a Heart Failure Patient?: Yes Documentation of LVEF assessment?: Yes LVEF < 40%?: No- if no continue to question #3 3. Anticoagulant therapy for permanect/persistent/paraoxysmal Afib or Aflutter: N/A Follow-up Appointment scheduled within 7 days?: Yes
[2019-10-20 15:32] VITALS: BP 139/57
== END 2019-10-20 17:34 | disposition home or self-care (01) | DRG 871 ==
LOC: ER 17:19 → EH 23:06 → 5 10-16 00:38 → 4S 10-17 15:56
PROVIDERS: ADMIT Hospitalist; ATTEND Internal Medicine
DX: A41.9 Sepsis, unspecified organism (principal); J18.9 Pneumonia, unspecified organism; N17.0 Acute kidney failure with tubular necrosis; J96.01 Acute respiratory failure with hypoxia; E87.1 Hypo-osmolality and hyponatremia; J44.1 Chronic obstructive pulmonary disease with (acute) exacerbation; J90 Pleural effusion, not elsewhere classified; R65.20 Severe sepsis without septic shock; E87.6 Hypokalemia; K21.9 Gastro-esophageal reflux disease without esophagitis; R33.9 Retention of urine, unspecified; K44.9 Diaphragmatic hernia without obstruction or gangrene; F31.9 Bipolar disorder, unspecified; F17.210 Nicotine dependence, cigarettes, uncomplicated; Z03.818 Encounter for observation for suspected exposure to other biological agents ruled out
CPT/HCPCS: 36415; 36600; 71045; 71046; 76604; 80048; 80053; 81001; 82550; 82553; 82728; 82803; 83605; 83615; 83735; 83880; 84100; 84484; 85025; 85379; 85610; 85730; 87040; 87070; 87086; 87324; 87449; 87635; 87804; 87880; 93005; 93010; 94660; 96361; 96365; 96367; 99291; 99292; J0456; J0696; J1650; J1940; J3411; J3475; J3480; J3490; J7030; J7060; J7120